=== PATIENT | female | born 1960 | race Caucasian/White ===

== ENCOUNTER 2017-09-22 22:01 | Observation (INO) | payer MEDICAID, OTHER ==
[2017-09-22] MEDS ORDERED: POLYMYXIN B/TRIMETH OPHTH DROPS EACHEYE STA (22:34)
[2017-09-22 22:47] LABS: BASOPHILS # (AUTO) 0.1 10^3/uL (0.0-0.1); EOSINOPHILS % (AUTO) 0.4 %; HGB - HEMOGLOBIN 12.5 g/dL (12.0-16.0); LYMPHOCYTES # (AUTO) 2.6 10^3/uL (1.5-3.5); LYMPHOCYTES % (AUTO) 28.5 %; MEAN CORPUSCULAR HEMOGLOBIN 37.7 pg (27.0-31.0); MEAN CORPUSCULAR HGB CONC 35.8 g/dL (32.0-36.0); MEAN CORPUSCULAR VOLUME 105.5 fL (81.0-99.0); MEAN PLATELET VOLUME 7.8 fL (7.9-10.8); MONOCYTES # (AUTO) 0.6 10^3/uL (0.0-1.0); MONOCYTES % (AUTO) 7.1 %; NEUTROPHILS # (AUTO) 5.8 10^3/uL (1.5-6.6); PLT - PLATELET COUNT 208 10^3/uL (130-450); RED BLOOD COUNT 3.32 10^6/uL (4.20-5.40); RED CELL DISTRIBUTION WIDTH 15.7 % (12.0-15.0); WHITE BLOOD COUNT 9.1 x10^3/uL (4.8-10.8)
[2017-09-22 23:02] LABS: ALBUMIN 4.4 g/dL (3.2-5.5); ALBUMIN/GLOBULIN RATIO 1.2 (1.0-2.2); BILIRUBIN,TOTAL 1.5 mg/dL (0.2-1.0); CALCIUM 7.4 mg/dL (8.5-10.3); CREATININE 1.5 mg/dL (0.4-1.0); TOTAL PROTEIN 8.2 g/dL (6.7-8.2)
[2017-09-22] MEDS ORDERED: SODIUM CHLORIDE 0.9% 1,000 ML IV ONE (23:06)
[2017-09-22] MEDS ORDERED: POTASSIUM CHLOR 10 MEQ/100 ML 10 MEQ/100 ML BAG IV ONE (23:06)
[2017-09-22] MEDS ORDERED: LORazepam 2 MG/ML VIAL IVP STA (23:10)
--- NOTE | 2017-09-22 23:12 | ED Physician Documentation ---
History of Present Illness - Stated complaint Stated Complaint: EYE IRRITATION/SHAKING - Chief complaint Chief Complaint: General - History obtained from History obtained from: Patient - History of Present Illness Timing: How many days ago (2) - Additonal information Additional information: Patient is a 57 year old female with no significant past medical history who is presenting to the emergency department for shaking episodes, high blood pressure and swelling and discharge of her left eye. patient states that two days prior she was shaking all day. She also felt nauseated. Patient went to go to an interview at a [employer] and was sent home for matting and discharge of her left eye. Patient states that the shaking gets worse with intention. Patient also complained of hand cramping. 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 : Kidney stones HEENT: None Psych: Anxiety Musculoskeletal: Rheumatoid arthritis Derm: None - Past Surgical History Past Surgical History: Yes Ortho: Other - Present Medications Home Medications: Ambulatory Orders Medication Instructions Recorded Confirmed Alprazolam [Xanax] 0.5 mg PO BID PRN 07/04/13 06/01/15 Metoprolol Succinate [Toprol Xl] 25 mg PO BID 07/04/13 06/01/15 Lisinopril 10 mg PO DAILY 09/22/17 09/22/17 - Allergies Allergies/Adverse Reactions: Allergies Allergy/AdvReac Type Severity Reaction Status Date / Time Sulfa (Sulfonamide Allergy Unknown Unknown Verified 09/22/17 22:09 Antibiotics) - Social History Does the pt smoke?: No Smoking Status: Never smoker Does the pt drink ETOH?: Yes Does the pt have substance abuse?: No - Immunizations Immunizations are current?: Yes - POLST Patient has POLST: No PD ED PE NORMAL - Vitals Vital signs reviewed: Yes - General General: Alert and oriented X 3 - HEENT HEENT: Atraumatic - Cardiac Cardiac: RRR - Respiratory Respiratory: No respiratory distress - Abdomen Abdomen: Soft - Neuro Neuro: Alert and oriented X 3, Normal speech Eye Opening: Spontaneous PD ED PE EXPANDED - General General: Alert - HEENT HEENT: Dry mucous membranes - Eyes Eyes: Left eye, Eyelid swelling, Exudate - Derm Derm: Diaphoretic - Neuro Neuro: Other (mild tremors) Results - Vitals Vitals: Vital Signs - 24 hr 09/22/17 09/22/17 22:04 23:28 Temperature 36.7 C Heart Rate 90 71 Respiratory 22 16 Rate Blood Pressure 171/102 H 145/95 H O2 Saturation 97 98 Oxygen O2 Source Room air - EKG (time done) 2326 Rate: Rate (enter#) (77) Rhythm: NSR [place]: Normal Intervals: Prolonged QT Ischemia: Other (st flattening ) Compare to prior EKG: Old EKG unavailable - Labs Labs: Laboratory Tests 09/22/17 09/22/17 09/22/17 22:17 22:41 22:41 WBC 9.1 RBC 3.32 L Hgb 12.5 Hct 35.1 L MCV 105.5 H MCH 37.7 H MCHC 35.8 RDW 15.7 H Plt Count 208 MPV 7.8 L Neut # (Auto) 5.8 Lymph # (Auto) 2.6 [place] # (Auto) 0.6 Eos # (Auto) 0.0 Baso # (Auto) 0.1 Absolute Nucleated RBC 0.00 Nucleated RBC % 0.0 VBG pH VBG pCO2 VBG pO2 VBG HCO3 VBG Total CO2 VBG O2 Saturation VBG Base Excess Sodium 134 L Potassium 2.4 L* Chloride 90 L Carbon Dioxide 24 Anion Gap 20.0 H BUN 21 H Creatinine 1.5 H Estimated GFR (MDRD) 36 L Glucose 97 POC Whole Bld Glucose 101 H Lactic Acid Calcium 7.4 L Phosphorus Magnesium Total Bilirubin 1.5 H AST 92 H ALT 44 Alkaline Phosphatase 67 Troponin I Total Protein 8.2 Albumin 4.4 Globulin 3.8 Albumin/Globulin Ratio 1.2 Lipase 41 TSH Ethyl Alcohol Serum Ketones 09/22/17 09/22/17 09/22/17 22:41 22:41 22:41 WBC RBC Hgb Hct MCV MCH MCHC RDW Plt Count MPV Neut # (Auto) Lymph # (Auto) [place] # (Auto) Eos # (Auto) Baso # (Auto) Absolute Nucleated RBC Nucleated RBC % VBG pH VBG pCO2 VBG pO2 VBG HCO3 VBG Total CO2 VBG O2 Saturation VBG Base Excess Sodium Potassium Chloride Carbon Dioxide Anion Gap BUN Creatinine Estimated GFR (MDRD) Glucose POC Whole Bld Glucose Lactic Acid Calcium Phosphorus 2.2 L Magnesium 0.8 L* Total Bilirubin AST ALT Alkaline Phosphatase Troponin I < 0.04 Total Protein Albumin Globulin Albumin/Globulin Ratio Lipase TSH 3.62 Ethyl Alcohol Serum Ketones 09/22/17 09/22/17 09/22/17 22:41 23:15 23:15 WBC RBC Hgb Hct MCV MCH MCHC RDW Plt Count MPV Neut # (Auto) Lymph # (Auto) [place] # (Auto) Eos # (Auto) Baso # (Auto) Absolute Nucleated RBC Nucleated RBC % VBG pH 7.481 H VBG pCO2 36.5 L VBG pO2 40.0 VBG HCO3 26.6 VBG Total CO2 27.8 VBG O2 Saturation 76.4 VBG Base Excess 3.2 H Sodium Potassium Chloride Carbon Dioxide Anion Gap BUN Creatinine Estimated GFR (MDRD) Glucose POC Whole Bld Glucose Lactic Acid 2.4 H Calcium Phosphorus Magnesium Total Bilirubin AST ALT Alkaline Phosphatase Troponin I Total Protein Albumin Globulin Albumin/Globulin Ratio Lipase TSH Ethyl Alcohol 34.9 Serum Ketones SMALL H PD MEDICAL DECISION MAKING - ED course Complexity details: reviewed old records, reviewed results, re-evaluated patient , considered differential, d/w patient, d/w sfdc consultant ED course: Patient was seen and examined at bedside. labs were drawn, urine was collected. polytrim was ordered for patient's eye. When patient's labs came back she was found to be hypokalemic, in [place] with macrocytic anemia and transaminitis consistent with alcohol abuse. Patient was then asked about her drinking. patient states that she has been trying to cut back and her last drink was the day before her symptoms. Patient was treated with a fluid bolus, ativan, thiamine, folic acid, magnesium and potassium. ekg was performed and showed milt qt prolongation. Hospitalist was contacted and the case was discussed with her. Patient was admiited for further evaluation and care. - Sepsis Event Vital Signs: Vital Signs - 24 hr 09/22/17 09/22/17 22:04 23:28 Temperature 36.7 C Heart Rate 90 71 Respiratory 22 16 Rate Blood Pressure 171/102 H 145/95 H O2 Saturation 97 98 Oxygen O2 Source Room air Departure - Departure Disposition: ED Place in Observation Clinical Impression: Hypokalemia, Hypomagnesemia, GEORGIE (acute kidney injury) Condition: Stable
[2017-09-22 23:26] LABS: PHOSPHORUS 2.2 mg/dL (2.5-4.6)
[2017-09-22] MEDS ORDERED: MAGNESIUM SULFATE 2 GRAM 2 GM/50 ML BAG IV ONE (23:27)
[2017-09-22] MEDS ORDERED: THIAMINE INJ 100 MG in SODIUM CHLORIDE 0.9% 50 ML IV STA (23:27)
[2017-09-22] MEDS ORDERED: FOLIC ACID INJ 1 MG in SODIUM CHLORIDE 0.9% 1,000 ML IV STA (23:27)
[2017-09-22 23:29] LABS: MAGNESIUM 0.8 mg/dL (1.7-2.8)
[2017-09-22 23:33] LABS: VBG BASE EXCESS 3.2 mmol/L (-2 - +2); VBG PCO2 36.5 mmHg (41-51); VBG PH 7.481 (7.31-7.41); VBG TOTAL CO2 27.8 mmol/L (24-29)
[2017-09-22 23:39] LABS: KETONES, SERUM (ACETEST) SMALL (NEGATIVE)
[2017-09-22] MEDS ORDERED: D5.45NS W/20 MEQ KCL 1,000 ML IV SCH (23:45)
[2017-09-22] MEDS ORDERED: SODIUM CHLORIDE FLUSH 0.9% 10 ML SYRINGE IVP PRN (23:54)
--- NOTE | 2017-09-23 00:49 | HISTORY & PHYSICAL EXAMINATION ---
Chief Complaint - Chief Complaint Chief Complaint: Shaking, chills History of Present Illness - Admitted From Admitted From:: Home - History Obtained From History obtained from: Patient, ED physician - History of Present Illness HPI Comment/Other: Ms. Tati Navarro is a very pleasant 57-year-old female who has a history of having woken up 2 days ago with fever, chills, shaking, and weakness. She says she was too weak to come to the emergency department and did not want to come via EMS because she did not want to be stranded without a car and so waited until today, when she felt better, to come into the emergency department. On admission the patient was found to be severely hypomagnesemic, Faith Kumar, and phosphatemia. The patient does not have an elevated white blood cell count or a fever. She will be admitted to an observation bed on telemetry and we will correct her electrolytes the best we can overnight. 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 : reports: Kidney stones HEENT: reports: None Psych: reports: Anxiety Musculoskeletal: reports: Rheumatoid arthritis Derm: reports: None MRSA Hx?: No - Past Surgical History Ortho: reports: Other (R ankle repair) - Family & Social History Family History: Mother: (Father in a motor vehicle accident), Cancer (Mother of lung cancer), Father: , Other family: Hyperlipidemia, Hypertension, [place] Living arrangement: At home Living Situation: Alone - Substance History Use Issues: Intoxication Abuse: Recurrent use of substance despite neg consequences: Alcohol Abuse Issues: Intoxication Dependence: Experiences withdrawal or developed tolerances: Alcohol - POLST Patient has POLST: No POLST Status: Full Code Meds/Allgy - Home Medications Home Medications: Ambulatory Orders Medication Instructions Recorded Confirmed Alprazolam [Xanax] 0.5 mg PO BID PRN 07/04/13 06/01/15 Metoprolol Succinate [Toprol Xl] 25 mg PO BID 07/04/13 06/01/15 Lisinopril 10 mg PO DAILY 09/22/17 09/22/17 - Allergies Allergies/Adverse Reactions: Allergies Allergy/AdvReac Type Severity Reaction Status Date / Time Sulfa (Sulfonamide Allergy Unknown Unknown Verified 09/22/17 22:09 Antibiotics) Review of Systems - Constitutional Constitutional: reports: Fatigue, Chills, Malaise, Weakness, Night sweats - Eyes Eyes: denies: Pain, Irritation, Amaurosis, Blurred vision - Ears, Nose & Throat Ears, Nose & Throat: denies: Ear pain, Hearing loss, Hearing aids, Tinnitus, Vertigo, Nasal pain, Nasal discharge - Cardiovascular Cariovascular: denies: Irregular heart rate, Palpitations, Chest pain, Edema - Respiratory Respiratory: denies: Cough, Sputum production, Wheezing, Snoring - Gastrointestinal Gastrointestinal: denies: Abdominal pain, Abdominal distention, Constipation, Diarrhea, Change in bowel habits, Rectal bleeding - Genitourinary Genitourinary: denies: Dysuria, Frequency, Urgency, Hematuria - Musculoskeletal Musculoskeletal: reports: Muscle aches. denies: Muscle pain, Back pain, Stiffness - Integumentary Integumentary: denies: Rash, Pruritis, Lesions, Dryness - Neurological Neurological: denies: General weakness, Focal weakness, Headache, Dizziness - Psychiatric Psychiatric: denies: Depression, Anxiety, Suicidal, Delusions, Hallucinations - Endocrine Endocrine: denies: Polyuria, Polydypsia, Polyphagia - Hematologic/Lymphatic Hematologic/Lymphatic: denies: Anemia, Bruising, Petechiae, Lymphadenopathy - All Other Systems All Other Systems: reports: Reviewed and negative Exam - Vital Signs Reviewed Vital Signs: Yes Vital Signs: Vital Signs x48h Temp Pulse Resp BP Pulse Ox 09/23/17 00:19 80 29 H 166/90 H 93 09/22/17 23:28 71 16 145/95 H 98 09/22/17 22:04 36.7 C 90 22 171/102 H 97 - Physical Exam General Appearance: positive: Alert, Mild distress Eyes Bilateral: positive: Normal inspection, PERRL, EOMI, No lid inflammation, Conjunctivae nml, No scleral icterus ENT: positive: ENT inspection nml, Pharynx nml, No signs of dehydration Neck: positive: Nml inspection, Thyroid nml, No JVD, Trachea midline. negative : Thyromegaly Respiratory: positive: Chest non-tender, No respiratory distress, Breath sounds nml. negative: Wheezes, Rales, Rhonchi Cardiovascular: positive: Regular rate & rhythm, No murmur, No gallop Peripheral Pulses: positive: 1+ Abdomen: positive: Non-tender, No organomegaly, Nml bowel sounds, No distention. negative: Guarding, Rebound Back: positive: Nml inspection. negative: CVA tenderness (R), CVA tenderness (L ) Skin: positive: Color nml, No rash, Warm, Dry. negative: Cyanosis Extremities: positive: Non-tender, Full ROM, Nml appearance, No pedal edema Neurologic/Psychiatric: positive: Oriented x3, CN's nml (2-12), Motor nml, Sensation nml, Mood/affect nml, Other (tremulous) Conclusion/Plan - Problem List (1) GEORGIE (acute kidney injury) Conclusion/Plan: The patient appears to be dehydrated, we will rehydrate her. She is also very tremulous and her numbers suggest that she drinks alcohol much more often than just on weekends. We will rehydrate her and monitor her renal function closely. (2) Hypomagnesemia Conclusion/Plan: Severe, 0.8. We will give 8 bags of magnesium overnight and start her on oral magnesium supplements tomorrow morning. (3) Hypokalemia Conclusion/Plan: We are replacing the patient's potassium and phosphorus at this time. We will recheck in the morning. (4) Hypertension Conclusion/Plan: Patient's blood pressure is elevated, will restart home dosing of lisinopril and metoprolol.Patient may need a diuretic. Qualifiers: Hypertension type: essential hypertension Qualified Code(s): I10 - Essential (primary) hypertension - Lab Results Lab results reviewed: Yes Mehul Bones: 09/22/17 22:41 09/22/17 22:41 Core Measures - Anticipated LOS I expect patient to be DC'd or transferred within 96 hours.: Yes - DVT/VTE - Prophylaxis VTE/DVT Device ordered at admit?: Yes
[2017-09-23] MEDS ORDERED: MAGNESIUM OXIDE 400 MG TABLET PO SCH ×2 (01:00→14:00)
[2017-09-23] MEDS: SODIUM CHLORIDE FLUSH 0.9% 10 ML SYRINGE IVP SCH ×2 (01:50→08:40)
[2017-09-23] MEDS: MAGNESIUM SULFATE 1 GM in SODIUM CHLORIDE 0.9% 50 ML IV SCH ×4 (01:51→05:50)
[2017-09-23] MEDS: NEUTRA-PHOS 250 MG TABLET PO SCH ×3 (02:05→11:55)
[2017-09-23] MEDS: LORazepam 0.5 MG TABLET PO SCH ×3 (02:08→13:40)
[2017-09-23 04:19] LABS: BILIRUBIN,URINE NEGATIVE (NEGATIVE); GLUCOSE, URINE (UA) NEGATIVE (NEGATIVE); KETONES,URINE (UA) TRACE mg/dL (NEGATIVE); LEUKOCYTE ESTERASE, URINE NEGATIVE (NEGATIVE); NITRITE,URINE NEGATIVE (NEGATIVE); OCCULT BLOOD,URINE NEGATIVE (NEGATIVE); PH,URINE 5.5 PH (5.0-7.5); PROTEIN,URINE NEGATIVE (NEGATIVE); UROBILINOGEN,URINE 0.2 (NORMAL) E.U./dL (NORMAL)
[2017-09-23 04:20] LABS: CLARITY,URINE CLEAR (CLEAR)
[2017-09-23] MEDS: POTASSIUM CHLORIDE 20 MEQ TABLET PO SCH ×2 (06:03→13:40)
[2017-09-23 06:21] LABS: HGB - HEMOGLOBIN 11.3 g/dL (12.0-16.0); MEAN CORPUSCULAR HEMOGLOBIN 38.3 pg (27.0-31.0); MEAN CORPUSCULAR HGB CONC 35.9 g/dL (32.0-36.0); MEAN CORPUSCULAR VOLUME 106.8 fL (81.0-99.0); MEAN PLATELET VOLUME 8.2 fL (7.9-10.8); RED BLOOD COUNT 2.95 10^6/uL (4.20-5.40); RED CELL DISTRIBUTION WIDTH 15.5 % (12.0-15.0); WHITE BLOOD COUNT 6.8 x10^3/uL (4.8-10.8)
[2017-09-23 06:32] LABS: CALCIUM 6.8 mg/dL (8.5-10.3); CREATININE 1.3 mg/dL (0.4-1.0); MAGNESIUM 2.6 mg/dL (1.7-2.8); PHOSPHORUS 2.2 mg/dL (2.5-4.6)
[2017-09-23] MEDS ORDERED: POTASSIUM CHLOR 20 MEQ/100 ML 20 MEQ/100 ML BAG IV SCH (07:00)
[2017-09-23] MEDS ORDERED: NYSTATIN POWDER 15 GM TOP SCH (07:00)
[2017-09-23] MEDS: POTASSIUM CHLOR 10 MEQ/100 ML 10 MEQ/100 ML BAG IV SCH ×5 (08:45→14:47)
[2017-09-23] MEDS ORDERED: POLYETHYLENE GLYCOL 3350 17 GM PACKET PO SCH (09:00)
[2017-09-23] MEDS ORDERED: LISINOPRIL 5 MG TABLET PO SCH (09:00)
[2017-09-23 10:59] LABS: BUN - BLOOD UREA NITROGEN 21 mg/dL (6-20); CALCIUM 6.7 mg/dL (8.5-10.3); CARBON DIOXIDE - CO2 25 mmol/L (21-32); CHLORIDE 93 mmol/L (101-111); CREATININE 1.3 mg/dL (0.4-1.0); GFR - MDRD 42 (>89); GLUCOSE 95 mg/dL (70-100); MAGNESIUM 2.6 mg/dL (1.7-2.8); PHOSPHORUS 2.3 mg/dL (2.5-4.6); SODIUM 130 mmol/L (135-145)
[2017-09-23 11:04] LABS: VBG PH 7.453 (7.31-7.41)
[2017-09-23] MEDS ORDERED: CALCIUM CARBONATE CHEW 500 MG TABLET PO SCH (13:00)
[2017-09-23 15:44] LABS: ALBUMIN 3.7 g/dL (3.2-5.5); ALBUMIN/GLOBULIN RATIO 1.1 (1.0-2.2); ALKALINE PHOSPHATASE 68 IU/L (42-121); ALT ALANINE AMINOTRANSFERASE 40 IU/L (10-60); AST ASPARTATE AMINOTRANSFERASE 94 IU/L (10-42); BILIRUBIN,TOTAL 1.3 mg/dL (0.2-1.0); BUN - BLOOD UREA NITROGEN 20 mg/dL (6-20); CALCIUM 6.9 mg/dL (8.5-10.3); CARBON DIOXIDE - CO2 25 mmol/L (21-32); CHLORIDE 94 mmol/L (101-111); CREATININE 1.1 mg/dL (0.4-1.0); GFR - MDRD 51 (>89); GLUCOSE 119 mg/dL (70-100); MAGNESIUM 2.3 mg/dL (1.7-2.8); PHOSPHORUS 2.5 mg/dL (2.5-4.6); SODIUM 132 mmol/L (135-145); TOTAL PROTEIN 7.1 g/dL (6.7-8.2)
[2017-09-23 15:53] VITALS: BP 134/65
[2017-09-23 15:57] LABS: VBG PH 7.422 (7.31-7.41)
--- NOTE | 2017-09-23 16:07 | Discharge Plan ---
Discharge Plan Disposition: 01 Home, Self Care Condition: Fair Prescriptions: LORazepam [Ativan] 0.5 mg PO Q6H #30 tablet Sertraline [Zoloft] 50 mg PO DAILY #30 tablet Diet: Regular Activity Restrictions: Activity as Tolerated Shower Restrictions: No Driving Restrictions: No Weight Bearing: Full Weight Additional Instructions or Follow Up instructions: You presented with weakness and where shaking. He was found to be dehydrated with abnormal electrolytes due to gastroenteritis and alcohol withdrawal. I have prescribed you Ativan to help you through withdrawal and shaking. I recommend that you drink plenty of fluids, eat and use Pedialyte as well as potassium and magnesium to replenish her electrolytes. You have also been prescribed Zoloft for your history of depression and I would advised that you start taking Zoloft and follow-up with your primary care physician. I also recommend that you stay away from alcohol in the future as it does not seem to react well with your system. No Smoking: If you smoke, Please STOP! Call for help.
--- NOTE | 2017-09-23 16:14 | DISCHARGE SUMMARY ---
Discharge Summary Admit Date: 09/22/17 Discharge Date: 09/23/17 Discharging Provider: Ruy Maki MD Primary Care Provider: None Code Status: Attempt Resuscitation Condition at Discharge: Fair Discharge Disposition: 01 Home, Self Care - DIAGNOSES Admission Diagnoses: 1. Acute kidney injury 2. Hypomagnesemia 3. Hypokalemia 4. Hypertension Discharge Diagnoses with Status of Each Condition: 1. Acute kidney injury: Resolving 2. Hypomagnesemia: Improved 3. Hypokalemia: Improved 4. Hypertension: Stable 5. Alcohol abuse: Stable 6. Depression: Stable - HPI History of Present Illness: Ms. Tati Navarro is a very pleasant 57-year-old female who has a history of having woken up 2 days ago with fever, chills, shaking, and weakness. She says she was too weak to come to the emergency department and did not want to come via EMS because she did not want to be stranded without a car and so waited until today, when she felt better, to come into the emergency department. On admission the patient was found to be severely hypomagnesemic, Faith Kumar, and phosphatemia. The patient does not have an elevated white blood cell count or a fever. She will be admitted to an observation bed on telemetry and we will correct her electrolytes the best we can overnight. - HOSPITAL COURSE Hospital Course: During hospitalization patient was given IV fluids, IV magnesium, phosphorus replacement, IV potassium, thiamine, folic acid and placed on alcohol withdrawal protocol with Ativan as needed. The patient was adequately hydrated and electrolytes were adequately replaced during the hospitalization. The patient continued to feel slightly shaky but was in much better condition at the time of discharge. The patient was discharged home with a prescription for Ativan to help her through her alcohol withdrawals. She was advised to quit drinking. She was also advised to drink plenty of fluid and use Pedialyte as well as potassium and magnesium to replenish her electrolytes. The patient was given a prescription for Zoloft which she had previously been taking for depression. The patient did admit to being depressed since losing her job and had resorted to drinking alcohol as means of treating her depression. Patient was discharged in stable condition. - ALLERGIES Allergies/Adverse Reactions: Allergies Allergy/AdvReac Type Severity Reaction Status Date / Time Sulfa (Sulfonamide Allergy Unknown Unknown Verified 09/22/17 22:09 Antibiotics) - MEDICATIONS Home Medications: Ambulatory Orders Medication Instructions Recorded Confirmed Alprazolam [Xanax] 0.5 mg PO TID PRN 07/04/13 09/23/17 Lisinopril 10 mg PO DAILY 09/22/17 09/22/17 LORazepam [Ativan] 0.5 mg PO Q6H #30 tablet 09/23/17 Metoprolol Tartrate [Lopressor] 50 mg PO BID 09/23/17 09/23/17 Omeprazole [PriLOSEC] 20 mg PO QDAC 09/23/17 09/23/17 Sertraline [Zoloft] 50 mg PO DAILY #30 tablet 09/23/17 - PHYSICAL EXAM AT DISCHARGE General Appearance: positive: Alert, Other (Mild tremor, disheveled appearing) Eyes Bilateral: positive: Normal inspection, PERRL, EOMI, No lid inflammation, Conjunctivae nml, No scleral icterus ENT: positive: ENT inspection nml, Pharynx nml, Dry mucous membranes. negative : Purulent nasal drainage, Pharyngeal erythema, Oral lesions Neck: positive: Nml inspection, Thyroid nml, No JVD, Trachea midline. negative : Lymphadenopathy (R), Lymphadenopathy (L), Stiff neck, Kernig's sign, Carotid bruit, Tracheal deviation Respiratory: positive: Chest non-tender, No respiratory distress, Breath sounds nml. negative: Wheezes, Rales, Rhonchi Cardiovascular: positive: Regular rate & rhythm, No murmur, No gallop Peripheral Pulses: positive: 2+ Abdomen: positive: Non-tender, No organomegaly, Nml bowel sounds, No distention. negative: Guarding, Rebound, Hepatomegaly Back: positive: Nml inspection. negative: CVA tenderness (R), CVA tenderness (L ) Skin: positive: Color nml, No rash, Warm. negative: Diaphoresis, Pallor, Skin rash Extremities: positive: Non-tender, Full ROM, Nml appearance, No pedal edema Neurologic/Psychiatric: positive: Oriented x3, CN's nml (2-12), Motor nml, Sensation nml, Depressed mood/affect - LABS Result Diagrams: 09/23/17 06:10 09/23/17 15:16 Other Lab Results: Laboratory Results WBC 6.8 x10^3/uL (4.8-10.8) 09/23/17 06:10 RBC 2.95 10^6/uL (4.20-5.40) L 09/23/17 06:10 Hgb 11.3 g/dL (12.0-16.0) L 09/23/17 06:10 Hct 31.5 % (37.0-47.0) L 09/23/17 06:10 MCV 106.8 fL (81.0-99.0) H 09/23/17 06:10 MCH 38.3 pg (27.0-31.0) H 09/23/17 06:10 MCHC 35.9 g/dL (32.0-36.0) 09/23/17 06:10 RDW 15.5 % (12.0-15.0) H 09/23/17 06:10 Plt Count 173 10^3/uL (130-450) 09/23/17 06:10 MPV 8.2 fL (7.9-10.8) 09/23/17 06:10 Neut # (Auto) 5.8 10^3/uL (1.5-6.6) 09/22/17 22:41 Lymph # (Auto) 2.6 10^3/uL (1.5-3.5) 09/22/17 22:41 [place] # (Auto) 0.6 10^3/uL (0.0-1.0) 09/22/17 22:41 Eos # (Auto) 0.0 10^3/uL (0.0-0.7) 09/22/17 22:41 Baso # (Auto) 0.1 10^3/uL (0.0-0.1) 09/22/17 22:41 Absolute Nucleated RBC 0.00 x10^3/uL 09/22/17 22:41 Nucleated RBC % 0.0 /100WBC 09/22/17 22:41 VBG pH 7.422 (7.31-7.41) H 09/23/17 15:16 VBG pCO2 36.5 mmHg (41-51) L 09/22/17 23:15 VBG pO2 40.0 mmHg (25-47) 09/22/17 23:15 VBG HCO3 26.6 mmol/L (23-28) 09/22/17 23:15 VBG Total CO2 27.8 mmol/L (24-29) 09/22/17 23:15 VBG O2 Saturation 76.4 % (60-80) 09/22/17 23:15 VBG Base Excess 3.2 mmol/L (-2 - +2) H 09/22/17 23:15 Ionized Calcium 0.86 mmol/L (1.15-1.33) L 09/23/17 15:16 Sodium 132 mmol/L (135-145) L 09/23/17 15:16 Potassium 3.0 mmol/L (3.5-5.0) L 09/23/17 15:16 Chloride 94 mmol/L (101-111) L 09/23/17 15:16 Carbon Dioxide 25 mmol/L (21-32) 09/23/17 15:16 Anion Gap 13.0 (6-13) 09/23/17 15:16 BUN 20 mg/dL (6-20) 09/23/17 15:16 Creatinine 1.1 mg/dL (0.4-1.0) H 09/23/17 15:16 Estimated GFR (MDRD) 51 (>89) L 09/23/17 15:16 Glucose 119 mg/dL (70-100) H 09/23/17 15:16 POC Whole Bld Glucose 101 mg/dL (70 - 100) H 09/22/17 22:17 Lactic Acid 1.1 mmol/L (0.5-2.2) 09/23/17 02:44 Calcium 6.9 mg/dL (8.5-10.3) L 09/23/17 15:16 Ionized Calcium YES 09/23/17 15:16 Phosphorus 2.5 mg/dL (2.5-4.6) 09/23/17 15:16 Magnesium 2.3 mg/dL (1.7-2.8) 09/23/17 15:16 Total Bilirubin 1.3 mg/dL (0.2-1.0) H 09/23/17 15:16 AST 94 IU/L (10-42) H 09/23/17 15:16 ALT 40 IU/L (10-60) 09/23/17 15:16 Alkaline Phosphatase 68 IU/L (42-121) 09/23/17 15:16 Troponin I < 0.04 ng/mL (<0.49) 09/22/17 22:41 Total Protein 7.1 g/dL (6.7-8.2) 09/23/17 15:16 Albumin 3.7 g/dL (3.2-5.5) 09/23/17 15:16 Globulin 3.4 g/dL (2.1-4.2) 09/23/17 15:16 Albumin/Globulin Ratio 1.1 (1.0-2.2) 09/23/17 15:16 Lipase 41 U/L (22-51) 09/22/17 22:41 TSH 3.62 uIU/mL (0.34-5.60) 09/22/17 22:41 Urine Color YELLOW 09/23/17 01:20 Urine Clarity CLEAR (CLEAR) 09/23/17 01:20 Urine pH 5.5 PH (5.0-7.5) 09/23/17 01:20 Ur Specific Needles 1.015 (1.002-1.030) 09/23/17 01:20 Urine Protein NEGATIVE mg/dL (NEGATIVE) 09/23/17 01:20 Urine Glucose (UA) NEGATIVE mg/dL (NEGATIVE) 09/23/17 01:20 Urine Ketones TRACE mg/dL (NEGATIVE) 09/23/17 01:20 Urine Occult Blood NEGATIVE (NEGATIVE) 09/23/17 01:20 Urine Nitrite NEGATIVE (NEGATIVE) 09/23/17 01:20 Urine Bilirubin NEGATIVE (NEGATIVE) 09/23/17 01:20 Urine Urobilinogen 0.2 (NORMAL) E.U./dL (NORMAL) 09/23/17 01:20 Ur Leukocyte Esterase NEGATIVE (NEGATIVE) 09/23/17 01:20 Ur Microscopic Review NOT INDICATED 09/23/17 01:20 Urine Culture Comments NOT INDICATED 09/23/17 01:20 Ethyl Alcohol 34.9 mg/dL 09/22/17 22:41 Serum Ketones SMALL (NEGATIVE) H 09/22/17 22:41 - FOLLOW UP Follow Up: Patient discharged home with prescription for Ativan as needed to help her through withdrawal. Also patient given prescription for Zoloft and patient advised to drink plenty of fluids, take a multivitamin, use potassium and magnesium. The patient was also advised to quit drinking and use Pedialyte over the next few days to keep well-hydrated and replenish electrolytes. - TIME SPENT Time Spent in Discharge (Minutes): 35
== END 2017-09-23 16:55 | disposition home or self-care (01) ==
LOC: ED 22:01 → OBS 23:54
PROVIDERS: ADMIT Hospitalist; ATTEND Internal Medicine
DX: N17.9 Acute kidney failure, unspecified (principal); E83.42 Hypomagnesemia; E87.6 Hypokalemia; I10 Essential (primary) hypertension; F10.239 Alcohol dependence with withdrawal, unspecified; F32.9 Major depressive disorder, single episode, unspecified; E83.39 Other disorders of phosphorus metabolism; H57.8 Other specified disorders of eye and adnexa; H02.89 Other specified disorders of eyelid; D53.9 Nutritional anemia, unspecified; F41.9 Anxiety disorder, unspecified; Z63.79 Other stressful life events affecting family and household; Z79.899 Other long term (current) drug therapy
CPT/HCPCS: 36415; 80048; 80053; 80320; 81003; 82009; 82330; 82803; 83605; 83690; 83735; 84100; 84443; 84484; 85025; 85027; 93005; 96365; 96366; 96367; 96368; 96375; 99284; A9270; G0378; J2060; J3411; J7040; 81001; 87086; 99283

== ENCOUNTER 2018-10-27 18:49 | Emergency (ER) | payer MEDICAID ==
--- NOTE | 2018-10-27 19:10 | ED Physician Documentation ---
History of Present Illness - Stated complaint Stated Complaint: BILAT LEG PX - Chief complaint Chief Complaint: Ext Problem - History obtained from History obtained from: Patient - History of Present Illness Timing: Other (58-year-old woman with some history of alcoholism presents with a complaint of burning pain that is symmetric of both thighs for the last month. It goes on all day and all night. There is no particular inciting or relieving factor. She denies other muscle aches, posterior leg pain, or any pain below the knees. There is no shortness of breath or chest pain. She has a history of significant electrolyte abnormalities presumably related to alcohol use. 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 : Kidney stones HEENT: None Psych: Anxiety Musculoskeletal: Rheumatoid arthritis Derm: None - Past Surgical History Past Surgical History: Yes Ortho: Other - Present Medications Home Medications: Ambulatory Orders Medication Instructions Recorded Confirmed Alprazolam [Xanax] 0.5 mg PO TID PRN 07/04/13 09/23/17 Lisinopril 10 mg PO DAILY 09/22/17 09/22/17 LORazepam [Ativan] 0.5 mg PO Q6H #30 tablet 09/23/17 Metoprolol Tartrate [Lopressor] 50 mg PO BID 09/23/17 09/23/17 Omeprazole [PriLOSEC] 20 mg PO QDAC 09/23/17 09/23/17 Sertraline [Zoloft] 50 mg PO DAILY #30 tablet 09/23/17 Potassium Phosphate,Monobasic 500 mg PO DAILY #7 10/27/18 [K-Phos Original] predniSONE [Deltasone] 10 mg PO ONCE #7 tablet 10/27/18 - Allergies Allergies/Adverse Reactions: Allergies Allergy/AdvReac Type Severity Reaction Status Date / Time Sulfa (Sulfonamide Allergy Unknown Unknown Verified 10/27/18 18:55 Antibiotics) - Social History Does the pt smoke?: No Smoking Status: Never smoker Does the pt drink ETOH?: Yes Does the pt have substance abuse?: No - Immunizations Immunizations are current?: Yes - POLST Patient has POLST: No POLST Status: Full Code PD ED PE NORMAL - Vitals Vital signs reviewed: Yes - General General: Alert and oriented X 3, No acute distress - Cardiac Cardiac: RRR, No murmur - Respiratory Respiratory: No respiratory distress, Clear bilaterally - Abdomen Abdomen: Normal bowel sounds, Soft, Non tender - Extremities Extremities: Other (There is no significant tenderness or discoloration of her thighs, no swelling or edema. No limited range of motion at any of her joints.) - Neuro Neuro: Alert and oriented X 3, Normal speech Results - Vitals Vitals: Vital Signs - 24 hr 10/27/18 18:52 Temperature 36.0 C L Heart Rate 110 H Respiratory 19 Rate Blood Pressure 153/98 H O2 Saturation 98 Oxygen O2 Source Room air - Labs Labs: Laboratory Tests 10/27/18 10/27/18 10/27/18 19:16 19:16 19:16 WBC 5.4 RBC 3.27 L Hgb 11.7 L Hct 34.6 L MCV 105.8 H MCH 35.8 H MCHC 33.8 RDW 13.4 Plt Count 234 MPV 9.6 Neut # (Auto) 2.1 Lymph # (Auto) 2.8 [place] # (Auto) 0.4 Eos # (Auto) 0.1 Baso # (Auto) 0.0 Absolute Nucleated RBC 0.00 Nucleated RBC % 0.0 ESR 32 H Sodium 145 Potassium 3.3 L Chloride 111 Carbon Dioxide 20 L Anion Gap 14.0 H BUN 20 Creatinine 0.9 Estimated GFR (MDRD) 64 L Glucose 111 H Calcium 9.1 Phosphorus 2.1 L Magnesium 1.9 Total Bilirubin 0.6 AST 122 H ALT 80 H Alkaline Phosphatase 77 Total Creatine Kinase 57 C-Reactive Protein 1.3 H Total Protein 7.6 Albumin 3.9 Globulin 3.7 Albumin/Globulin Ratio 1.1 Lipase 36 Ethyl Alcohol 199.4 PD MEDICAL DECISION MAKING - ED course ED course: 58-year-old woman who presents with bilateral subacute thigh ache anteriorly inconsistent with DVT. Could be some combination of electrolyte abnormalities which are generally mild on labs tonight, alcoholic neuropathy or polymyalgia rheumatica with noted elevated ESR. She is started on low-dose prednisone and her Electrolytes are repleted orally. She is noted to be drunk tonight, although not clinically and is advised that she may not drive home either safely nor legally. She needs to find a ride. I did not give her a long dose of steroids as she has poor primary care follow-up and I would be worried about iatrogenic adrenal crisis. Departure - Departure Disposition: Home, Self Care Clinical Impression: Hypokalemia, Polymyalgia rheumatica Alcohol intoxication Qualifiers: Complication of substance-induced condition: uncomplicated Qualified Code(s): F10.920 - Alcohol use, unspecified with intoxication, uncomplicated Condition: Good Record reviewed to determine appropriate education?: Yes Instructions: ED Alcohol Intoxication Prescriptions: Potassium Phosphate,Monobasic [K-Phos Original] 500 mg PO DAILY #7 predniSONE [Deltasone] 10 mg PO ONCE #7 tablet Comments: For the polymyalgia rheumatica, I would normally give you a longer course of steroids but given the lack of primary care follow-up it is probably unsafe to do so given the risk of issues if stopped suddenly. Try to obtain primary care follow-up. You may not drive tonight. You are drunk. Your blood pressure was elevated today on check into the emergency department. This does not mean that you have hypertension, it is a common phenomenon to come to the emergency department and have elevated blood pressure. I recommend that you see your primary care physician within the week to have it rechecked when you are feeling better.
[2018-10-27 19:22] LABS: BASOPHILS % (AUTO) 0.7 %; EOSINOPHILS # (AUTO) 0.1 10^3/uL (0.0-0.7); EOSINOPHILS % (AUTO) 1.1 %; HGB - HEMOGLOBIN 11.7 g/dL (12.0-16.0); LYMPHOCYTES # (AUTO) 2.8 10^3/uL (1.5-3.5); LYMPHOCYTES % (AUTO) 50.9 %; MEAN CORPUSCULAR HEMOGLOBIN 35.8 pg (27.0-31.0); MEAN CORPUSCULAR HGB CONC 33.8 g/dL (32.0-36.0); MEAN CORPUSCULAR VOLUME 105.8 fL (81.0-99.0); MEAN PLATELET VOLUME 9.6 fL (7.9-10.8); MONOCYTES # (AUTO) 0.4 10^3/uL (0.0-1.0); MONOCYTES % (AUTO) 7.7 %; NEUTROPHILS # (AUTO) 2.1 10^3/uL (1.5-6.6); NEUTROPHILS % (AUTO) 39.2 %; PLT - PLATELET COUNT 234 10^3/uL (130-450); RED BLOOD COUNT 3.27 10^6/uL (4.20-5.40); RED CELL DISTRIBUTION WIDTH 13.4 % (12.0-15.0); WHITE BLOOD COUNT 5.4 x10^3/uL (4.8-10.8)
[2018-10-27 19:41] LABS: BILIRUBIN,TOTAL 0.6 mg/dL (0.2-1.0); CALCIUM 9.1 mg/dL (8.5-10.3); CREATININE 0.9 mg/dL (0.4-1.0); MAGNESIUM 1.9 mg/dL (1.7-2.8); PHOSPHORUS 2.1 mg/dL (2.5-4.6)
[2018-10-27 19:42] LABS: ALBUMIN 3.9 g/dL (3.2-5.5); ALBUMIN/GLOBULIN RATIO 1.1 (1.0-2.2); CRP - C-REACTIVE PROTEIN 1.3 mg/dL (0-1.0); TOTAL PROTEIN 7.6 g/dL (6.7-8.2)
[2018-10-27] MEDS ORDERED: POTASSIUM CHLORIDE 20 MEQ TABLET PO STA (19:56)
[2018-10-27] MEDS ORDERED: NEUTRA-PHOS 250 MG TABLET PO STA (19:56)
[2018-10-27] MEDS ORDERED: predniSONE 20 MG TABLET PO STA (20:27)
[2018-10-27 20:59] VITALS: BP 158/79
== END 2018-10-27 20:40 | disposition home or self-care (01) ==
LOC: ED 18:49
DX: M35.3 Polymyalgia rheumatica (principal); E87.6 Hypokalemia; F10.229 Alcohol dependence with intoxication, unspecified; I10 Essential (primary) hypertension
CPT/HCPCS: 36415; 80053; 80320; 82550; 83690; 83735; 84100; 85025; 85651; 86140; 99283; A9270; J7512

== ENCOUNTER 2020-01-23 14:44 | Outpatient (CLI) | payer MEDICAID | END 2020-01-23 14:45 | disposition EMS.NT | LOC: EMS 14:44 | PROVIDERS: ATTEND Surgery | DX: R53.1 Weakness (principal) ==

== ENCOUNTER 2020-03-02 12:57 | Outpatient (CLI) | payer MEDICAID ==
--- NOTE | 2020-03-02 13:39 | XRAY Report ---
PROCEDURE: Lumbar Spine 2 View INDICATIONS: LOW BACK PAIN, CHRONIC TECHNIQUE: 3 views of the lumbar spine were acquired. COMPARISON: None. FINDINGS: Bones: 5 net-nvy-fdsgorx vertebrae are present. There is very mild leftward scoliosis of lumbar spi ne centered at L4 level. Grade 1 retrolisthesis of L1 on L2 and L2 on L3 is seen with minimal anterol isthesis of L3 on L4. Degenerative endplate changes and bilateral facet arthrosis throughout lumbar s pine is seen more prominent at L4-5 and L5-S1 levels. No vertebral body compression fractures. No guo spicious bony lesions. Soft tissues: Overlying bowel gas pattern is normal. No suspicious soft tissue calcifications. IMPRESSION: Degenerative disc disease throughout lumbar spine. No acute compression fracture. Grade 1 spondylolisthesis at L1-2 through L3-4 levels as above. Reviewed by: Conor Vásquez MD on 03/02/2020 1:37 PM PST Approved by: Conor Vásquez MD on 03/02/2020 1:37 PM PST Station ID: [id number]
== END 2020-03-02 12:58 | disposition home or self-care (01) ==
LOC: DI.S 12:57
PROVIDERS: ATTEND Family Medicine
DX: M43.16 Spondylolisthesis, lumbar region (principal); M47.816 Spondylosis without myelopathy or radiculopathy, lumbar region; M47.817 Spondylosis without myelopathy or radiculopathy, lumbosacral region; M51.36 Other intervertebral disc degeneration, lumbar region; M51.37 Other intervertebral disc degeneration, lumbosacral region
CPT/HCPCS: 72100

== ENCOUNTER 2020-04-25 23:41 | Outpatient (CLI) | payer MEDICAID | END 2020-04-25 23:42 | disposition home or self-care (01) | LOC: COV 23:41 | PROVIDERS: ATTEND Family Medicine | DX: R06.02 Shortness of breath (principal); M79.10 Myalgia, unspecified site; R53.83 Other fatigue; R68.83 Chills (without fever); J34.89 Other specified disorders of nose and nasal sinuses; R11.2 Nausea with vomiting, unspecified; Z20.822 Contact with and (suspected) exposure to COVID-19 ==

== ENCOUNTER 2020-05-10 15:15 | Outpatient (CLI) | payer MEDICAID | END 2020-05-10 23:59 | disposition critical access hospital (66) | LOC: EMS 15:15 | PROVIDERS: ATTEND Emergency Medicine | DX: R53.1 Weakness (principal); R25.1 Tremor, unspecified | CPT/HCPCS: A0425; A0427; A0999 ==

== ENCOUNTER 2020-05-10 15:54 | Emergency (ER) | payer MEDICAID ==
[2020-05-10] MEDS ORDERED: THIAMINE INJ 100 MG in SODIUM CHLORIDE 0.9% 50 ML IV STA (16:14)
[2020-05-10] MEDS ORDERED: SODIUM CHLORIDE 0.9% 1,000 ML IV STA (16:14)
--- NOTE | 2020-05-10 16:22 | ED Physician Documentation ---
History of Present Illness - Stated complaint Stated Complaint: HBD - Chief complaint Chief Complaint: General - History obtained from History obtained from: Patient (She has been drinking heavily for the last few days. She was last sober on Thursday, 4 days ago. Today she called her counselor because she had fallen down the stairs and the counselor) - Additonal information Additional information: She has been drinking heavily for the last few days. She was last sober on Thursday, 4 days ago. Today she called her counselor because she had fallen down the stairs and the counselor and required her to come to the emergency department. She has no specific complaints and just wants to go home. She did hit her head on the stairs going down the stairs earlier today. She has no headache. 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 : Kidney stones HEENT: None Psych: Anxiety Musculoskeletal: Rheumatoid arthritis Derm: None - Past Surgical History Past Surgical History: Yes Ortho: Other - Present Medications Home Medications: Ambulatory Orders Medication Instructions Recorded Confirmed lisinopriL [Lisinopril] 10 mg PO DAILY 09/22/17 05/10/20 Metoprolol Tartrate [Lopressor] 50 mg PO BID 09/23/17 05/10/20 Escitalopram Oxalate 5 mg PO DAILY 05/10/20 05/10/20 Venlafaxine ER [Effexor ER] 75 mg PO DAILY 05/10/20 05/10/20 - Allergies Allergies/Adverse Reactions: Allergies Allergy/AdvReac Type Severity Reaction Status Date / Time Sulfa (Sulfonamide Allergy Unknown Unknown Verified 05/10/20 16:11 Antibiotics) - Social History Does the pt smoke?: No Smoking Status: Never smoker Does the pt drink ETOH?: Yes Does the pt have substance abuse?: No - Immunizations Immunizations are current?: Yes - POLST Patient has POLST: No POLST Status: Full Code PD ED PE NORMAL - Vitals Vital signs reviewed: Yes - General General: Alert and oriented X 3, No acute distress, Other (Slightly intoxicated but fairly cogent an excellent historian remembering us meeting a few years ago.) - HEENT HEENT: PERRL, EOMI - Neck Neck: Supple, no meningeal sign, No bony TTP - Cardiac Cardiac: RRR, No murmur - Respiratory Respiratory: No respiratory distress, Clear bilaterally - Abdomen Abdomen: Non tender - Back Back: No CVA TTP, No spinal TTP - Derm Derm: Normal color, Warm and dry - Extremities Extremities: No edema, No calf tenderness / cord - Neuro Neuro: Alert and oriented X 3, Normal speech - Psych Psych: Normal mood, Normal affect Results - Vitals Vitals: Vital Signs - 24 hr 05/10/20 05/10/20 05/10/20 16:06 17:21 17:48 Temperature 37.1 C 37.4 C 37.0 C Heart Rate 87 90 84 Respiratory 16 18 16 Rate Blood Pressure 152/97 H 141/97 H 139/60 H O2 Saturation 100 100 98 Oxygen O2 Source Room air - Labs Labs: Laboratory Tests 05/10/20 05/10/20 16:23 16:23 WBC 6.0 RBC 3.63 L Hgb 12.6 Hct 36.9 L MCV 101.7 H MCH 34.7 H MCHC 34.1 RDW 12.5 Plt Count 259 MPV 9.2 Neut # (Auto) 2.8 Lymph # (Auto) 2.8 [place] # (Auto) 0.2 Eos # (Auto) 0.0 Baso # (Auto) 0.0 Absolute Nucleated RBC 0.00 Nucleated RBC % 0.0 Sodium 145 Potassium 3.9 Chloride 101 Carbon Dioxide 24 Anion Gap 20.0 H BUN 16 Creatinine 0.9 Estimated GFR (MDRD) 64 L Glucose 94 Calcium 8.7 Magnesium 2.2 Total Bilirubin 0.5 AST 49 H ALT 33 Alkaline Phosphatase 76 Total Protein 7.5 Albumin 4.1 Globulin 3.4 Albumin/Globulin Ratio 1.2 Lipase 34 Ethyl Alcohol 285.1 PD MEDICAL DECISION MAKING - ED course ED course: 59-year-old woman presents with alcohol intoxication which seems uncomplicated. She declined to talk to social work nor is she interested in going to detox. She was allowed to sober up for a time and she is calling a sober neighbor to give her a ride home. On discharge she was clinically sober without slurred speech, altered mentation and she was observed walking normally. She understands she cannot drive tonight. Departure - Departure Disposition: 01 Home, Self Care Clinical Impression: Alcohol intoxication Qualifiers: Complication of substance-induced condition: uncomplicated Qualified Code(s): F10.920 - Alcohol use, unspecified with intoxication, uncomplicated Condition: Stable Record reviewed to determine appropriate education?: Yes Instructions: ED Alcohol Intoxication Comments: Follow-up with your doctor, also consider Alcoholics Anonymous or other outpatient programs for help with quitting alcohol. Return if worse or if you change your mind about inpatient detox. Discharge Date/Time: 05/10/20 17:50
[2020-05-10 16:31] LABS: BASOPHILS % (AUTO) 0.7 %; EOSINOPHILS % (AUTO) 0.7 %; HCT - HEMATOCRIT 36.9 % (37.0-47.0); HGB - HEMOGLOBIN 12.6 g/dL (12.0-16.0); LYMPHOCYTES # (AUTO) 2.8 10^3/uL (1.5-3.5); MEAN CORPUSCULAR HEMOGLOBIN 34.7 pg (27.0-31.0); MEAN CORPUSCULAR HGB CONC 34.1 g/dL (32.0-36.0); MEAN CORPUSCULAR VOLUME 101.7 fL (81.0-99.0); MEAN PLATELET VOLUME 9.2 fL (7.9-10.8); MONOCYTES # (AUTO) 0.2 10^3/uL (0.0-1.0); NEUTROPHILS # (AUTO) 2.8 10^3/uL (1.5-6.6); NEUTROPHILS % (AUTO) 47.4 %; PLT - PLATELET COUNT 259 10^3/uL (130-450); RED BLOOD COUNT 3.63 10^6/uL (4.20-5.40); RED CELL DISTRIBUTION WIDTH 12.5 % (12.0-15.0)
[2020-05-10 16:46] LABS: ALBUMIN 4.1 g/dL (3.2-5.5); ALBUMIN/GLOBULIN RATIO 1.2 (1.0-2.2); BILIRUBIN,TOTAL 0.5 mg/dL (0.2-1.0); CALCIUM 8.7 mg/dL (8.5-10.3); CREATININE 0.9 mg/dL (0.4-1.0); ETOH - ETHANOL 285.1 mg/dL; MAGNESIUM 2.2 mg/dL (1.7-2.8); POTASSIUM 3.9 mmol/L (3.5-5.0); TOTAL PROTEIN 7.5 g/dL (6.7-8.2)
--- NOTE | 2020-05-10 16:52 | CT Report ---
PROCEDURE: CERVICAL SPINE WO INDICATIONS: head inj etoh TECHNIQUE: Noncontrast 3 mm thick sections acquired from the skull base to the T4 level. Sagittal and coronal r eformats were then constructed. For radiation dose reduction, the following was used: automated exp osure control, adjustment of mA and/or kV according to patient size. COMPARISON: Correlation is made with the accompanying head CT, 05/10/2020 FINDINGS: Image quality: Excellent. Bones: No fractures or dislocations. Visualized superior ribs are intact. Degenerative changes are seen, with at least moderate disc space narrowing at C4-C5, C5-C6, and C6-C7 . Endplate irregularity and sclerosis are seen, which are worst at the C5-C6 level. There is overall straightening of the normal cervical lordosis. Soft tissues: Prevertebral soft tissues are normal in thickness. No paravertebral hematomas. No ap ical pneumothoraces. IMPRESSION: No displaced fractures are seen. Cervical spine degenerative changes are seen, which are worst at C5-C6. Reviewed by: Darryl Alvarez MD on 05/10/2020 3:51 PM AKST Approved by: Darryl Alvarez MD on 05/10/2020 3:51 PM AKST Station ID: [id number]
--- NOTE | 2020-05-10 16:53 | CT Report ---
PROCEDURE: HEAD WO INDICATIONS: head inj etoh TECHNIQUE: Noncontrast 4.5 mm thick angled axial sections acquired from the foramen magnum to the vertex. For r adiation dose reduction, the following was used: automated exposure control, adjustment of mA and/or kV according to patient size. COMPARISON: Correlation is made with the accompanying cervical spine CT, 05/10/2020 FINDINGS: Image quality: Excellent. CSF spaces: Basal cisterns are patent. No extra-axial fluid collections. Ventricles are normal in size and shape. Brain: No midline shift. No intracranial masses or hemorrhage. Mendes-white matter interface is norm al. Skull and face: Calvarium and visualized facial bones are intact, without suspicious lesions. Sinuses: Visualized sinuses and mastoids are clear. IMPRESSION: No acute intracranial abnormality is seen. No intracranial hemorrhage is seen. Reviewed by: Darryl Alvarez MD on 05/10/2020 3:52 PM [place] Approved by: Darryl Alvarez MD on 05/10/2020 3:52 PM [facility] Station ID: [id number]
[2020-05-10 17:50] VITALS: BP 139/60
== END 2020-05-10 17:50 | disposition home or self-care (01) ==
LOC: EDUNIT# → ED 15:54
DX: F10.129 Alcohol abuse with intoxication, unspecified (principal)
CPT/HCPCS: 36415; 70450; 72125; 80053; 80320; 83690; 83735; 85025; 96365; 99283; 99284; J3411; J7040

== ENCOUNTER 2020-07-04 15:07 | Outpatient (CLI) | payer MEDICAID ==
--- NOTE | 2020-07-05 08:26 | Mammography Report ---
BILATERAL DIGITAL SCREENING MAMMOGRAM 3D/2D: 07/04/2020 CLINICAL: Family history of breast cancer. Family history of breast cancer. Comparison is made to exam dated: 09/20/2013 mammogram - [facility]. There are sca ttered fibroglandular elements in both breasts. There is a 6 mm round asymmetry with an obscured and spiculated margin in the left breast at 2 o'cloc k middle depth. This is more prominent. No other significant masses, calcifications, or other findings are seen in either breast. IMPRESSION: INCOMPLETE: NEEDS ADDITIONAL IMAGING EVALUATION The 6 mm round asymmetry in the left breast is indeterminate. A diagnostic mammogram and ultrasound is recommended. This exam was interpreted at Station ID: [id number]. NOTE: For mammograms, a report in lay terms will be sent to the patient. Approximately 15% of breast malignancies will not be visualized mammographically. In the management of a palpable breast mass, a negative mammogram must not discourage biopsy of a clinically suspicious lesion. Electronically Signed By: Abby [email or web address]/[email or web address]:07/04/2020 16:16:47 ACR BI-RADS Category 0: Incomplete 3340F PARENCHYMAL PATTERN: (A) - The breast(s) demonstrate(s) scattered fibroglandular densities. BI-RADS CATEGORY: (0) - 0 Mammo and [place] [id number] Immediate follow-up LATERALITY: (B)
== END 2020-07-04 15:08 | disposition home or self-care (01) ==
LOC: DI.S 15:07
DX: Z12.31 Encounter for screening mammogram for malignant neoplasm of breast (principal); R92.8 Other abnormal and inconclusive findings on diagnostic imaging of breast; Z80.3 Family history of malignant neoplasm of breast

== ENCOUNTER 2020-08-09 11:50 | Day surgery (SDC) | payer MEDICAID ==
[2020-08-09] MEDS ORDERED: LACTATED RINGERS 1,000 ML IV ONE ×2 (12:39→13:48)
[2020-08-09] MEDS ORDERED: fentaNYL 250 MCG/5 ML VIAL ONE (13:00)
[2020-08-09] MEDS ORDERED: MIDAZOLAM 2 MG/2 ML VIAL ONE ×2 (13:00→13:15)
[2020-08-09 14:05] VITALS: BP 100/53
== END 2020-08-09 11:51 | disposition home or self-care (01) ==
LOC: SDS 11:50
PROVIDERS: ATTEND Surgery
PROC: 0DBL8ZZ Excision of Transverse Colon, Via Natural or Artificial Opening Endoscopic (ICD-10-PCS; 2020-08-09)
PROC: 0DBH8ZZ Excision of Cecum, Via Natural or Artificial Opening Endoscopic (ICD-10-PCS; 2020-08-09)
PROC: 0DBK8ZZ Excision of Ascending Colon, Via Natural or Artificial Opening Endoscopic (ICD-10-PCS; principal; 2020-08-09 13:00)
DX: Z12.11 Encounter for screening for malignant neoplasm of colon (principal); D12.0 Benign neoplasm of cecum; D12.2 Benign neoplasm of ascending colon; D12.3 Benign neoplasm of transverse colon; K57.30 Diverticulosis of large intestine without perforation or abscess without bleeding; K64.8 Other hemorrhoids; K64.4 Residual hemorrhoidal skin tags
CPT/HCPCS: 45385; J3010; J7120

== ENCOUNTER 2020-08-16 12:47 | Outpatient (CLI) | payer MEDICAID ==
--- NOTE | 2020-08-17 10:49 | Ultrasound Report ---
LIMITED ULTRASOUND OF LEFT BREAST AND AXILLA: 08/16/2020 CLINICAL: Patient returns today to evaluate a focal asymmetry in the left breast. Comparison is made to exams dated: 08/16/2020 mammogram, 07/04/2020 mammogram, 09/20/2013 mammogram, an d 05/08/2009 mammogram - [facility]. Color flow and real-time ultrasound of the left breast 2-3 o'clock, and axilla regions were performe d on the areas of interest. Mendes scale images of the real-time examination were reviewed. There is a 0.5 cm x 0.6 cm x 0.3 cm oval mass with an indistinct margin in the left breast at 2 o'marylin ck middle depth. This oval mass is hypoechoic. This correlates with mammography findings. Color fl ow imaging demonstrates that there is an adjacent vascularity. No significant abnormalities were seen sonographically in the left axilla. IMPRESSION: SUSPICIOUS OF MALIGNANCY The 0.5 cm x 0.6 cm x 0.3 cm oval mass in the left breast is suspicious of malignancy. An ultrasound guided biopsy is recommended. The findings were discussed with the patient at the conclusion of the study by Dr. Zee. This exam was interpreted at Station ID: [id number]. Electronically Signed By: Hussain Leyva M.D. ddp/:08/16/2020 16:01:00 Ultrasound BI-RADS: 4 Suspicious for malignancy BI-RADS CATEGORY: (4) - 4 None [id number] Immediate follow-up LATERALITY: ()
--- NOTE | 2020-08-17 10:49 | Mammography Report ---
UNILATERAL LEFT DIGITAL DIAGNOSTIC MAMMOGRAM 3D/2D: 08/16/2020 CLINICAL: Patient returns today to evaluate a focal asymmetry in the left breast. Comparison is made to exams dated: 07/04/2020 mammogram, 09/20/2013 mammogram, and 05/08/2009 mammogram - [facility]. There are scattered fibroglandular elements in left breast. There is an oval equal density mass with an indistinct and circumscribed margin in the left breast at 3 o'clock middle depth. No other significant masses or calcifications are seen in the breast. IMPRESSION: INCOMPLETE: NEEDS ADDITIONAL IMAGING EVALUATION The oval equal density mass in the left breast is indeterminate. An ultrasound is recommended. Ultrasound will be performed immediately following the current exam. This exam was interpreted at Station ID: [id number]. NOTE: For mammograms, a report in lay terms will be sent to the patient. Approximately 15% of breast malignancies will not be visualized mammographically. In the management of a palpable breast mass, a negative mammogram must not discourage biopsy of a clinically suspicious lesion. Electronically Signed By: Hussain Leyva M.D. ddp/:08/16/2020 13:27:25 ACR BI-RADS Category 0: Incomplete 3340F PARENCHYMAL PATTERN: (A) - The breast(s) demonstrate(s) scattered fibroglandular densities. BI-RADS CATEGORY: (0) - 0 Ultrasound [id number] Immediate follow-up LATERALITY: (B)
== END 2020-08-16 12:48 | disposition home or self-care (01) ==
LOC: DI 12:47
PROVIDERS: ATTEND Physician Assistant
DX: N63.21 Unspecified lump in the left breast, upper outer quadrant (principal)

== ENCOUNTER 2020-08-27 17:52 | Outpatient (CLI) | payer MEDICAID ==
[2020-08-27 20:15] LABS: BASOPHILS % (AUTO) 0.7 %; EOSINOPHILS # (AUTO) 0.1 10^3/uL (0.0-0.7); EOSINOPHILS % (AUTO) 2.3 %; HCT - HEMATOCRIT 38.3 % (37.0-47.0); HGB - HEMOGLOBIN 12.8 g/dL (12.0-16.0); LYMPHOCYTES # (AUTO) 2.2 10^3/uL (1.5-3.5); LYMPHOCYTES % (AUTO) 36.7 %; MEAN CORPUSCULAR HEMOGLOBIN 33.4 pg (27.0-31.0); MEAN CORPUSCULAR HGB CONC 33.4 g/dL (32.0-36.0); MEAN PLATELET VOLUME 10.3 fL (7.9-10.8); MONOCYTES # (AUTO) 0.7 10^3/uL (0.0-1.0); PLT - PLATELET COUNT 274 10^3/uL (130-450); RED BLOOD COUNT 3.83 10^6/uL (4.20-5.40); RED CELL DISTRIBUTION WIDTH 12.9 % (12.0-15.0); WHITE BLOOD COUNT 6.1 x10^3/uL (4.8-10.8)
[2020-08-27 20:49] LABS: % IRON SATURATION 51 % (20-50); IRON 133 ug/dL (28-170); TOTAL IRON BINDING CAPACITY 263 ug/dL (250-450); TRANSFERRIN 188 mg/dL (192-382)
[2020-08-27 20:53] LABS: THYROID STIMULATING HORMONE 2.48 uIU/mL (0.34-5.60)
[2020-08-27 20:57] LABS: FREE T4 (FREE THYROXINE) 0.92 ng/dL (0.58-1.64)
[2020-08-27 21:00] LABS: FERRITIN 1000.1 ng/mL (11.0-306.8)
== END 2020-08-27 17:53 | disposition home or self-care (01) ==
LOC: DI 17:52
PROVIDERS: ATTEND Physician Assistant
DX: L65.9 Nonscarring hair loss, unspecified (principal)
CPT/HCPCS: 36415; 82728; 83540; 84439; 84443; 84466; 84480; 84630; 85025

== ENCOUNTER 2020-08-31 21:39 | Outpatient (CLI) | payer MEDICAID | END 2020-08-31 21:40 | disposition critical access hospital (66) | LOC: EMS 21:39 | DX: S09.90XA Unspecified injury of head, initial encounter (principal); M54.2 Cervicalgia; M54.9 Dorsalgia, unspecified; M25.512 Pain in left shoulder; M25.511 Pain in right shoulder; W10.9XXA Fall (on) (from) unspecified stairs and steps, initial encounter; Y92.008 Other place in unspecified non-institutional (private) residence as the place of occurrence of the external cause | CPT/HCPCS: A0425; A0429; A0999 ==

== ENCOUNTER 2020-08-31 22:15 | Observation (INO) | payer MEDICAID ==
[2020-08-31] MEDS ORDERED: SODIUM CHLORIDE 0.9% 1,000 ML IV STA ×2 (22:27→23:33)
[2020-08-31] MEDS ORDERED: MORPHINE 10 MG/ML VIAL IVP STA (22:28)
--- NOTE | 2020-08-31 22:31 | ED Physician Documentation ---
History of Present Illness - Stated complaint Stated Complaint: FELL DOWN 12 STAIRS, NECK/BACK/BILAT SHOULDER PAIN - Chief complaint Chief Complaint: Trauma Hd/Nk - History obtained from History obtained from: Patient, EMS - Additonal information Additional information: 60-year-old woman with history of high blood pressure, not on blood thinners, presents with fall down 12 stairs after going on a drinking binge this evening. She is unsure whether he she hit her head but is complaining of severe midline upper back pain and mid lower back pain. Also with midline chest wall pain. Further initial history limited by patient emotional distress Review of Systems Unable to obtain: Intoxicated PD PAST MEDICAL HISTORY - Past Medical History Cardiovascular: Hypertension Respiratory: None Neuro: Tremors Endocrine/Autoimmune: None GI: GERD RETORT OPERATOR: None : None HEENT: None Psych: Depression Musculoskeletal: Osteoarthritis, Chronic back pain Derm: None - Past Surgical History Past Surgical History: Yes Ortho: Other - Present Medications Home Medications: Ambulatory Orders Medication Instructions Recorded Confirmed lisinopriL [Lisinopril] 10 mg PO DAILY 09/22/17 08/31/20 Metoprolol Tartrate [Lopressor] 50 mg PO BID 09/23/17 08/31/20 Escitalopram Oxalate 5 mg PO DAILY 05/10/20 08/31/20 Venlafaxine ER [Effexor ER] 150 mg PO DAILY 05/10/20 08/31/20 - Allergies Allergies/Adverse Reactions: Allergies Allergy/AdvReac Type Severity Reaction Status Date / Time Sulfa (Sulfonamide Allergy Unknown Unknown Verified 08/31/20 22:27 Antibiotics) - Social History Does the pt smoke?: No Smoking Status: Never smoker Does the pt drink ETOH?: Yes Does the pt have substance abuse?: No - Immunizations Immunizations are current?: Yes - POLST Patient has POLST: No POLST Status: Full Code PD ED PE NORMAL - Vitals Vital signs reviewed: Yes - General General: Alert and oriented X 3, No acute distress, Well developed/nourished, Other (tearful, mildly intoxicated) - HEENT HEENT: Atraumatic, PERRL, EOMI - Neck Neck: No bony TTP - Cardiac Cardiac: RRR, Other (anterior sternal wall ttp) - Respiratory Respiratory: No respiratory distress, Clear bilaterally - Abdomen Abdomen: Non tender, Non distended - Back Back: Other (midthoracic and upper lumbar midline ttp) - Derm Derm: Normal color, Other (abrasion to upper lip) - Extremities Extremities: No deformity - Neuro Neuro: Alert and oriented X 3, No motor deficit, No sensory deficit - Psych Psych: Other (intoxicated, tearful appearing) Results - Vitals Vitals: Vital Signs - 24 hr 08/31/20 08/31/20 09/01/20 22:22 22:41 00:11 Temperature 36.8 C Heart Rate 66 66 75 Respiratory 20 18 17 Rate Blood Pressure 128/92 H 134/83 H 128/90 H O2 Saturation 96 100 96 09/01/20 01:20 Temperature Heart Rate 69 Respiratory 17 Rate Blood Pressure 150/91 H O2 Saturation 100 Oxygen O2 Source Room air - Labs Labs: Laboratory Tests 08/31/20 08/31/20 08/31/20 22:36 22:36 22:36 WBC 11.0 H RBC 3.42 L Hgb 11.5 L Hct 35.3 L MCV 103.2 H MCH 33.6 H MCHC 32.6 RDW 13.1 Plt Count 276 MPV 9.8 Neut # (Auto) 7.6 H Lymph # (Auto) 2.7 [place] # (Auto) 0.5 Eos # (Auto) 0.1 Baso # (Auto) 0.1 Absolute Nucleated RBC 0.00 Nucleated RBC % 0.0 PT 11.5 INR 1.0 APTT 26.1 Sodium 143 Potassium 3.8 Chloride 109 Carbon Dioxide 23 Anion Gap 11.0 BUN 32 H Creatinine 1.1 H Estimated GFR (MDRD) 51 L Glucose 112 H Calcium 8.4 L Total Bilirubin 0.6 AST 62 H ALT 61 H Alkaline Phosphatase 73 Total Protein 7.1 Albumin 4.1 Globulin 3.0 Albumin/Globulin Ratio 1.4 Lipase 38 Nasal Adenovirus (PCR) Nasal B. parapertussis DNA (PCR) Nasal Coronavir 229E PCR Nasal Coronavir HKU1 PCR Nasal Coronavir NL63 PCR Nasal Coronavir OC43 PCR Nasal Enterovir/Rhinovir PCR Nasal Influenza B PCR Nasal Influenza A PCR Nasal Parainfluen 1 PCR Nasal Parainfluen 2 PCR Nasal Parainfluen 3 PCR Nasal Parainfluen 4 PCR Nasal RSV (PCR) Nasal B.pertussis DNA PCR Nasal C.pneumoniae (PCR) Jamal Human Metapneumo PCR Nasal M.pneumoniae (PCR) Nasal SARS-CoV-2 (PCR) Urine Opiates Screen Ur Oxycodone Screen Urine Methadone Screen Ur Propoxyphene Screen Ur Barbiturates Screen Ur Tricyclics Screen Ur Phencyclidine Scrn Ur Amphetamine Screen U Methamphetamines Scrn U Benzodiazepines Scrn Urine Cocaine Screen U Cannabinoids Screen Ethyl Alcohol 321.8 09/01/20 09/01/20 00:35 01:05 WBC RBC Hgb Hct MCV MCH MCHC RDW Plt Count MPV Neut # (Auto) Lymph # (Auto) [place] # (Auto) Eos # (Auto) Baso # (Auto) Absolute Nucleated RBC Nucleated RBC % PT INR APTT Sodium Potassium Chloride Carbon Dioxide Anion Gap BUN Creatinine Estimated GFR (MDRD) Glucose Calcium Total Bilirubin AST ALT Alkaline Phosphatase Total Protein Albumin Globulin Albumin/Globulin Ratio Lipase Nasal Adenovirus (PCR) NOT DETECTED Nasal B. parapertussis DNA (PCR) NOT DETECTED Nasal Coronavir 229E PCR NOT DETECTED Nasal Coronavir HKU1 PCR NOT DETECTED Nasal Coronavir NL63 PCR NOT DETECTED Nasal Coronavir OC43 PCR NOT DETECTED Nasal Enterovir/Rhinovir PCR NOT DETECTED Nasal Influenza B PCR NOT DETECTED Nasal Influenza A PCR NOT DETECTED Nasal Parainfluen 1 PCR NOT DETECTED Nasal Parainfluen 2 PCR NOT DETECTED Nasal Parainfluen 3 PCR NOT DETECTED Nasal Parainfluen 4 PCR NOT DETECTED Nasal RSV (PCR) NOT DETECTED Nasal B.pertussis DNA PCR NOT DETECTED Nasal C.pneumoniae (PCR) NOT DETECTED Jamal Human Metapneumo PCR NOT DETECTED Nasal M.pneumoniae (PCR) NOT DETECTED Nasal SARS-CoV-2 (PCR) NOT DETECTED Urine Opiates Screen POSITIVE H Ur Oxycodone Screen NEGATIVE Urine Methadone Screen NEGATIVE Ur Propoxyphene Screen NEGATIVE Ur Barbiturates Screen NEGATIVE Ur Tricyclics Screen NEGATIVE Ur Phencyclidine Scrn NEGATIVE Ur Amphetamine Screen NEGATIVE U Methamphetamines Scrn NEGATIVE U Benzodiazepines Scrn NEGATIVE Urine Cocaine Screen NEGATIVE U Cannabinoids Screen NEGATIVE Ethyl Alcohol PD MEDICAL DECISION MAKING - ED course ED course: 60-year-old woman presents status post fall down 12 stairs while intoxicated. We will obtain CT imaging to evaluate for trauma. d/w merged with [facility] spine surgeon Dr. Balbir Salazar who recommends medicine admission for pain control. no surgical intervention needed. Departure - Departure Disposition: ED Place in Observation Clinical Impression: T11 vertebral fracture, Fall down stairs, Alcohol abuse
[2020-08-31] MEDS ORDERED: IOVERSOL 320 100 ML VIAL IVP ONE ×2 (22:46→23:22)
[2020-08-31 22:48] LABS: BASOPHILS # (AUTO) 0.1 10^3/uL (0.0-0.1); BASOPHILS % (AUTO) 0.6 %; EOSINOPHILS # (AUTO) 0.1 10^3/uL (0.0-0.7); EOSINOPHILS % (AUTO) 0.5 %; HCT - HEMATOCRIT 35.3 % (37.0-47.0); HGB - HEMOGLOBIN 11.5 g/dL (12.0-16.0); LYMPHOCYTES # (AUTO) 2.7 10^3/uL (1.5-3.5); LYMPHOCYTES % (AUTO) 24.3 %; MEAN CORPUSCULAR HEMOGLOBIN 33.6 pg (27.0-31.0); MEAN CORPUSCULAR HGB CONC 32.6 g/dL (32.0-36.0); MEAN CORPUSCULAR VOLUME 103.2 fL (81.0-99.0); MEAN PLATELET VOLUME 9.8 fL (7.9-10.8); MONOCYTES # (AUTO) 0.5 10^3/uL (0.0-1.0); MONOCYTES % (AUTO) 4.5 %; NEUTROPHILS # (AUTO) 7.6 10^3/uL (1.5-6.6); NEUTROPHILS % (AUTO) 68.8 %; PLT - PLATELET COUNT 276 10^3/uL (130-450); RED BLOOD COUNT 3.42 10^6/uL (4.20-5.40); RED CELL DISTRIBUTION WIDTH 13.1 % (12.0-15.0)
--- OUTSIDE RECORDS SUMMARY | 2020-08-31 22:48 | EXTERNAL MEDICAL SUMMARY RPT | Continuity of Care Document ---
:1960 Demographics Phone Unavailable Preferred Language Unknown Marital Status Unknown Congregational Affiliation Unknown Race Unknown Ethnic Group Unknown Author Organization [facility] Address [address] [place] [address] Phone Allergies Encounters Medications Problems Results
[2020-08-31 22:53] LABS: PT - PROTHROMBIN TIME 11.5 secs (9.9-12.6)
[2020-08-31 23:00] LABS: PARTIAL THROMBOPLASTIN TIME 26.1 secs (24.9-33.3)
[2020-08-31 23:03] LABS: ALBUMIN 4.1 g/dL (3.2-5.5); ALBUMIN/GLOBULIN RATIO 1.4 (1.0-2.2); BILIRUBIN,TOTAL 0.6 mg/dL (0.2-1.0); CALCIUM 8.4 mg/dL (8.5-10.3); CREATININE 1.1 mg/dL (0.4-1.0); ETOH - ETHANOL 321.8 mg/dL; POTASSIUM 3.8 mmol/L (3.5-5.0); TOTAL PROTEIN 7.1 g/dL (6.7-8.2)
[2020-09-01] MEDS ORDERED: MORPHINE 2 MG/ML CARPUJECT IVP STA (00:39)
[2020-09-01 01:14] LABS: MUDS CUTOFF CONCENTRATIONS CUTOFF CONC BELOW:
[2020-09-01 01:24] LABS: AMPHETAMINE SCREEN,URINE NEGATIVE (NEGATIVE); BARBITURATE SCREEN,UR NEGATIVE (NEGATIVE); BENZODIAZEPINES SCREEN, URINE NEGATIVE (NEGATIVE); COCAINE SCREEN URINE NEGATIVE (NEGATIVE); METHADONE SCREEN, URINE NEGATIVE (NEGATIVE); METHAMPHETAMINES SCREEN, URINE NEGATIVE (NEGATIVE); OPIATE SCREEN, URINE POSITIVE (NEGATIVE); OXYCODONE SCREEN, URINE NEGATIVE (NEGATIVE); PROPOXYPHENE SCREEN, URINE NEGATIVE (NEGATIVE); THC CANNABINOID SCREEN, URINE NEGATIVE (NEGATIVE); TRICYCLIC ANTIDEPRESSANT,URINE NEGATIVE (NEGATIVE)
[2020-09-01 01:28] LABS: B. PARAPERTUSSIS- RESP PCR PAN NOT DETECTED; B. PERTUSSIS- RESP PCR PANEL NOT DETECTED; C. PNEUMONIAE- RESP PCR PANEL NOT DETECTED; CORONAVIRUS 229E-RESP PCR NOT DETECTED; CORONAVIRUS HKU1-RESP PCR NOT DETECTED; CORONAVIRUS NL63-RESP PCR NOT DETECTED; CORONAVIRUS OC43-RESP PCR NOT DETECTED; HUMAN METAPNEUMOVIRUS NOT DETECTED; INFLUENZA A- RESP PCR PANEL NOT DETECTED; INFLUENZA B - RESP PCR PANEL NOT DETECTED; M. PNEUMONIAE- RESP PCR PANEL NOT DETECTED; PARAINFLUENZA VIRUS 1 NOT DETECTED; PARAINFLUENZA VIRUS 2 NOT DETECTED; PARAINFLUENZA VIRUS 3 NOT DETECTED; PARAINFLUENZA VIRUS 4 NOT DETECTED; RHINOVIRUS/ENTEROVIRUS NOT DETECTED; RSV- RESP PCR PANEL NOT DETECTED; SARS-CoV-2 -RESP PCR PANEL NOT DETECTED
[2020-09-01] MEDS ORDERED: ONDANSETRON 4 MG/2 ML VIAL IVP PRN (01:48)
[2020-09-01] MEDS ORDERED: HYDROmorphone 0.5 MG/0.5 ML SYRINGE IVP PRN (01:48)
[2020-09-01] MEDS ORDERED: SODIUM CHLORIDE FLUSH 0.9% 10 ML SYRINGE IVP PRN (01:48)
[2020-09-01] MEDS ORDERED: oxyCODONE 5 MG TABLET PO PRN ×2 (01:48)
[2020-09-01] MEDS ORDERED: KETOROLAC 30 MG/ML VIAL IVP PRN (01:50)
--- NOTE | 2020-09-01 01:55 | HISTORY & PHYSICAL EXAMINATION ---
Chief Complaint - Chief Complaint Chief Complaint: Fall and back pain History of Present Illness - Admitted From Admitted From:: Home - History Obtained From Records Reviewed: Yes History obtained from: Patient, ER Physician, EMR - History of Present Illness HPI Comment/Other: This is a 60-year-old female with a past medical history significant for hypertension and depression who presents today after having a fall at home. She states she is walking up the stairs at home when she slipped and fell from about the 6 step. She denies any loss of consciousness but she cannot recall if she hit her head or not. She states is is not the first time she has fallen down her steps. She denies any chest pain or dyspnea, palpitations. She does complain of lower to mid back pain. Denies any headache, change in vision, numbness or tingling. Denies any difficulty urinating, dysuria, urgency, hematuria. She states her pain is quite significant initially but this is improved after receiving IV morphine and is now quite minimal. She does complain of some neck pain as well but is worse with movement. She states she was drinking alcohol last night and believes she had at least 2 drinks of vodka with Powerade. She denies any daily alcohol use and reports her last drink prior to this was about 1 week ago. She was celebrating a new job she will be starting. In the emergency department, she underwent a CT of the cervical spine which was unremarkable. CT chest with contrast revealed an acute anterior coronary and superior endplate fracture at T11. This finding was discussed with [facility] who felt that surgical intervention was not warranted at this time. Given the patient's ongoing pain, medicine was consulted for ad mission. 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 Denies any other family history. Living arrangement: At home Living Situation: Alone Social History Notes: She lives at home alone. She denies daily alcohol use. Denies a history of smoking. 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 - POLST Patient has POLST: No POLST Status: Full Code Meds/Allgy - Home Medications Home Medications: Ambulatory Orders Medication Instructions Recorded Confirmed lisinopriL [Lisinopril] 10 mg PO DAILY 09/22/17 08/31/20 Metoprolol Tartrate [Lopressor] 50 mg PO BID 09/23/17 08/31/20 Escitalopram Oxalate 5 mg PO DAILY 05/10/20 08/31/20 Venlafaxine ER [Effexor ER] 150 mg PO DAILY 05/10/20 08/31/20 - Allergies Allergies/Adverse Reactions: Allergies Allergy/AdvReac Type Severity Reaction Status Date / Time Sulfa (Sulfonamide Allergy Unknown Unknown Verified 08/31/20 22:27 Antibiotics) Review of Systems - Constitutional Constitutional: denies: Fever, Chills - Eyes Eyes: denies: Blurred vision, Vision loss - Cardiovascular Cariovascular: denies: Palpitations, Chest pain, Syncope, Exertional dyspnea, Decr. exercise tolerance - Respiratory Respiratory: denies: SOB at rest, SOB with exertion - Gastrointestinal Gastrointestinal: denies: Abdominal pain, Nausea, Vomiting - Genitourinary Genitourinary: denies: Dysuria, Frequency, Urgency, Hematuria - Musculoskeletal Musculoskeletal: reports: Back pain. denies: Muscle weakness - Integumentary Integumentary: denies: Rash - Neurological Neurological: denies: General weakness, Focal weakness, Numbness - Hematologic/Lymphatic Hematologic/Lymphatic: denies: Bruising, Bleeding tendencies - All Other Systems All Other Systems: reports: Reviewed and negative Prior Level of Functionality: She is independent with her ADL's. Exam - Vital Signs Reviewed Vital Signs: Yes Vital Signs: Vital Signs x48h Temp Pulse Resp BP Pulse Ox 09/01/20 01:20 69 17 150/91 H 100 09/01/20 00:11 75 17 128/90 H 96 08/31/20 22:41 66 18 134/83 H 100 08/31/20 22:22 36.8 C 66 20 128/92 H 96 - Physical Exam General Appearance: positive: No acute distress, Alert, Other (She appears comfortable sitting in bed.) Eyes Bilateral: positive: Normal inspection, Conjunctivae nml ENT: positive: ENT inspection nml Neck: positive: Nml inspection Respiratory: positive: No respiratory distress. negative: Wheezes, Rales Cardiovascular: positive: Regular rate & rhythm, No murmur. negative: Tachycardia, Systolic murmur Abdomen: positive: Non-tender, No distention. negative: Tenderness, Guarding, Rebound Back: positive: Nml inspection, Other (There is mild tenderness over the lower thoracic spine. No deformities noted. No paraspinal tenderness in the lumbar spine. She does have paraspinal cervical tenderness.) Skin: positive: Warm, Dry Extremities: positive: No pedal edema Neurologic/Psychiatric: positive: Motor nml, Sensation nml. negative: Di soriented to person, Disoriented to place Conclusion/Plan - Problem List (1) T11 vertebral fracture Conclusion/Plan: This is secondary to the fall at home. Imaging revealed an acute anterior coronary and superior endplate fracture at T11. This was discussed with [facility] who thought surgical intervention was not warranted. Despite receiving multiple doses of IV morphine in the emergency department, she still has pain with movement and ambulation has been difficult and so we will place her in observation for pain control. We will start her on 1000 mg of Tylenol 3 times daily with Toradol and Dilaudid as needed. We will also start her on Robaxin as needed. Will consider physical therapy consult. Qualifiers: Encounter type: initial encounter (2) Fall down stairs Conclusion/Plan: This is a mechanical fall which patient tributes to her narrow steps. She has been to the emergency department in the past for falls. Qualifiers: Encounter type: initial encounter Qualified Code(s): W10.8XXA - Fall (on) (from) other stairs and steps, initial encounter (3) Alcohol intoxication Conclusion/Plan: Her alcohol level of the greater than 300 she does admit to alcohol use prior to coming to the emergency department. Although she denies any alcohol use, we will start her on thiamine and multivitamin. We will monitor for evidence of withdrawal. Qualifiers: Complication of substance-induced condition: uncomplicated Qualified Code(s): F10.920 - Alcohol use, unspecified with intoxication, uncomplicated (4) Hypertension Conclusion/Plan: Her blood pressure is elevated in the 150s likely due to pain. We will resume her home lisinopril and metoprolol. - Lab Results Lab results reviewed: Yes Fish Bones: 08/31/20 22:36 08/31/20 22:36 - Diagnostic Imaging Results Diagnostic Imaging Results: positive: Prelim report reviewed Core Measures - Anticipated LOS I expect patient to be DC'd or transferred within 96 hours.: Yes - Issues Hospital Issues and Management Plan: 60-year-old female presents after a fall and found to have a T11 vertebral fracture. Her pain is difficult to control in the emergency department and we are asked to place her in observation for pain control. - DVT/VTE - Prophylaxis VTE/DVT Device ordered at admit?: Yes - Stroke - Rehab Assessment Rehab services assessment to be ordered?: Yes
--- OUTSIDE RECORDS SUMMARY | 2020-09-01 01:58 | EXTERNAL MEDICAL SUMMARY RPT | Continuity of Care Document ---
:1960 Demographics Phone Unavailable Preferred Language Unknown Marital Status Unknown Worship Affiliation Unknown Race Unknown Ethnic Group Unknown Author Organization [facility] Address [address] [phone] Phone Allergies Encounters Medications Problems Results
[2020-09-01] MEDS ORDERED: ACETAMINOPHEN 500 MG TABLET PO SCH ×2 (06:00)
[2020-09-01] MEDS ORDERED: methocarbamoL 500 MG TABLET PO PRN (07:00)
[2020-09-01 07:33] LABS: BASOPHILS # (AUTO) 0.1 10^3/uL (0.0-0.1); BASOPHILS % (AUTO) 0.7 %; EOSINOPHILS % (AUTO) 0.6 %; HCT - HEMATOCRIT 31.6 % (37.0-47.0); HGB - HEMOGLOBIN 10.9 g/dL (12.0-16.0); LYMPHOCYTES # (AUTO) 1.8 10^3/uL (1.5-3.5); LYMPHOCYTES % (AUTO) 26.2 %; MEAN CORPUSCULAR HEMOGLOBIN 34.9 pg (27.0-31.0); MEAN CORPUSCULAR HGB CONC 34.5 g/dL (32.0-36.0); MEAN CORPUSCULAR VOLUME 101.3 fL (81.0-99.0); MEAN PLATELET VOLUME 9.5 fL (7.9-10.8); MONOCYTES # (AUTO) 0.5 10^3/uL (0.0-1.0); MONOCYTES % (AUTO) 7.7 %; NEUTROPHILS # (AUTO) 4.3 10^3/uL (1.5-6.6); NEUTROPHILS % (AUTO) 64.2 %; PLT - PLATELET COUNT 221 10^3/uL (130-450); RED BLOOD COUNT 3.12 10^6/uL (4.20-5.40); RED CELL DISTRIBUTION WIDTH 13.1 % (12.0-15.0); WHITE BLOOD COUNT 6.7 x10^3/uL (4.8-10.8)
[2020-09-01 07:54] LABS: CALCIUM 7.9 mg/dL (8.5-10.3); CREATININE 0.9 mg/dL (0.4-1.0); POTASSIUM 3.9 mmol/L (3.5-5.0)
[2020-09-01] MEDS ORDERED: MULTIVITAMIN TABLET PO SCH (08:00)
--- NOTE | 2020-09-01 08:15 | PHARMACY PROGRESS NOTE ---
- Best Possible Medication History Admit Date and Time: 09/01/20 0148 Processed by: Nursing Medication History completed: Yes Patient Interview: Completed Secondary Source(s): Physician records, Pharmacy records, Insurance records As the person ultimately responsible for medication therapy, providers are able to order a medication from an existing home medication list in [facility] via the "Reconcile Routine" prior to Confirmation of that medication by child support agent. Such practice is discouraged except when the physician, in their clinical judgment, deems that a medical need exists for a medication without regard to previous use.
--- NOTE | 2020-09-01 08:26 | Discharge Plan ---
Discharge Plan Problem Reviewed?: Yes Disposition: Home, Self Care Condition: Fair Prescriptions: oxyCODONE [Roxicodone] 5 mg PO Q4HR PRN #60 tablet PRN Reason: Pain 5 to 7 methocarbamoL [Robaxin] 500 mg PO Q6HR PRN #60 tablet PRN Reason: Spasms Multivitamin/Iron/Folic Acid [Centrum Adults Tablet] 1 each PO DAILY #1 tablet Diet: Regular Activity Restrictions: Activity as Tolerated Driving Restrictions: Yes (no driving within 6 hours of oxycodone or robaxin) Assistance Devices: Walker Weight Bearing: Full Weight Instruction Topics: ED Fx Comp Vertebral Health Concerns: You were celebrating getting a new job and you drink a little bit too much. With your intoxication you lost her balance and fell down at home. You had acute back pain. In the emergency room we found her to have a small fracture where the bone was compressed in the middle of your spine. We label spine bones. The top of your neck is cervical. Your chest is call thoracic. And your lower spine is called lumbar. You have fractured thoracic bone #11. Plan of Treatment: 1. We gave you vitamins associated with overuse of alcohol. Mainly it is thiamine and folic acid. We suggest you take a multivitamin every day and an extra thiamine tablet [id number] on a daily basis. 2. We suggest that you refrain from drinking any alcohol while you are on pain medicines. And when you do drink do not drink more than 1 a day. 3. Pain medicine in the form of oxycodone has been prescribed. You have also been prescribed a muscle relaxant called Robaxin. Oxycodone will be 1 pill every 6 hours as needed. You can take one Tylenol and one Motrin with that oxycodone every 6 hours. You do not have to take the medicine on a regular schedule, but you can take it as needed for your pain. 4. I did ask if there was anyone at home to help you and you said that you were a private person and that your neighbors work. Please be careful. If you find that you cannot be home by yourself, and it is unsafe for you to be home, please come back to the emergency room and we can help you find placement. Care Goals: Over the next few weeks your pain will get gradually better and better and you will be able to move around more freely. Assessment: Patient understands care and treatment plan. Her care goal is to remain at home. She declines help with in-home services, but would like help getting home with a taxi. No Smoking: If you smoke, Please STOP! Call for help. Follow-up with: ANGIE LUDWIG PA-C [Primary Care Provider] -
[2020-09-01 08:39] VITALS: BP 137/89
[2020-09-01] MEDS ORDERED: VENLAFAXINE ER 75 MG CAPSULE PO SCH (09:00)
[2020-09-01] MEDS ORDERED: THIAMINE 100 MG TABLET PO SCH (09:00)
[2020-09-01] MEDS ORDERED: SODIUM CHLORIDE FLUSH 0.9% 10 ML SYRINGE IVP SCH (09:00)
[2020-09-01] MEDS ORDERED: ESCITALOPRAM OXALATE 5 MG PO SCH (09:00)
[2020-09-01] MEDS ORDERED: ENOXAPARIN 40 MG/0.4 ML SYRINGE SUBQ SCH (09:00)
[2020-09-01] MEDS ORDERED: METOPROLOL TARTRATE 50 MG TABLET PO SCH (09:00)
[2020-09-01] MEDS ORDERED: lisinopriL 5 MG TABLET PO SCH (09:00)
--- NOTE | 2020-09-01 09:05 | CT Report ---
PROCEDURE: Abdomen/Pelvis W INDICATIONS: Abdominal trauma, blunt CONTRAST: IV CONTRAST: Optiray 320 ml: 100 PO CONTRAST: *NO PO CONTRAST TECHNIQUE: After the administration of nonionic IV contrast, 5 mm thick sections acquired from the diaphragms to the symphysis. 5 mm thick coronal and sagittal reformats were acquired. For radiation dose reducti on, the following was used: automated exposure control, adjustment of mA and/or kV according to martha ent size. COMPARISON: 09/23/1713. Correlation is also made with the accompanying CT imaging. FINDINGS: Image quality: Excellent. ABDOMEN: Lung bases: Lung bases are clear. Heart size is normal. A small hiatal hernia is incidentally note d. Solid organs: Liver and spleen are normal in size and enhancement. Gallbladder wall does not appear thickened. Biliary system is non dilated. Pancreas enhances normally. No adrenal nodules. Kidn eys demonstrate normal size and enhancement, without hydronephrosis. Peritoneum and bowel: Bowel loops demonstrate normal wall thickness and caliber. No free fluid or a ir. Nodes and vessels: No retroperitoneal or mesenteric adenopathy by size criteria. Aorta and inferior vena cava are normal in size. Incidental note is made of separate origins of the splenic artery and the hepatic artery, without a common celiac artery trunk. Miscellaneous: No ventral hernias. PELVIS: Genitourinary: Bladder wall thickness is normal. Miscellaneous: No inguinal hernias or adenopathy. Bones: No suspicious bony lesions. There are fractures seen involving the superior endplates of T10 and T11, without acute features. There is 10-20% loss of height seen at each of these levels. No pos terior displacement of fracture fragments can be seen. Mild levoconvex scoliotic curvature is seen. IMPRESSION: Fractures of the superior endplates of T10 and T11. No acute posttraumatic solid organ injury can be seen. Incidental note is made of: Small hiatal hernia Note: No significant discrepancy from the preliminary report. Reviewed by: Darryl Alvarez MD on 09/01/2020 8:03 AM NATHAN Approved by: Darryl Alvarez MD on 09/01/2020 8:03 AM AKLONG Station ID: [id number]
--- NOTE | 2020-09-01 09:09 | CT Report ---
PROCEDURE: CHEST W INDICATIONS: Chest trauma, blunt, high energy CONTRAST: IV CONTRAST: Optiray 320 ml: 100 PO CONTRAST: *NO PO CONTRAST TECHNIQUE: After the administration of intravenous contrast, 5 mm thick sections acquired from the pulmonary api darnell to the posterior costophrenic angles. 7 mm thick coronal MIP reformats were acquired. For radia tion dose reduction, the following was used: automated exposure control, adjustment of mA and/or kV according to patient size. COMPARISON: Correlation is made with the accompanying CT examinations, 08/31/2020. FINDINGS: Image quality: Excellent. Lungs and pleura: No acute air space opacities. No pleural effusions or pneumothorax. Central and peripheral airways are patent and normal in caliber. Mediastinum: Heart size is normal. No pericardial effusion. No mediastinal or hilar adenopathy by size criteria. Thoracic aorta and central pulmonary arteries are normal in size. Esophagus is maryan l in caliber. There is a small hiatal hernia. Bones and chest wall: There are acute appearing fractures of the superior endplates of T10 and T11, with 10-20% loss of height centrally. No posterior displacement of fracture fragments can be seen. Th ere is a remote Schmorl's node seen at the superior endplate of L1. Age-appropriate degenerative murry ges are seen. No suspicious bony lesions. No axillary or supraclavicular adenopathy by size criteria. The thyro id is normal in size and there are no incidental findings. Abdomen: Visualized upper abdominal solid organs appear normal. Upper abdominal bowel loops are nor mal in caliber. IMPRESSION: Acute appearing fractures of the superior endplates of T10 and T11, without posterior displacement of fracture fragments. Incidental note is made of: Small hiatal hernia Note: No significant discrepancy from the preliminary report. Reviewed by: Darryl Alvarez MD on 09/01/2020 8:08 AM NATHAN Approved by: Darryl Alvarez MD on 09/01/2020 8:08 AM NATHAN Station ID: [id number]
--- NOTE | 2020-09-01 09:12 | CT Report ---
PROCEDURE: HEAD WO INDICATIONS: Head trauma, mod-severe TECHNIQUE: Noncontrast 4.5 mm thick angled axial sections acquired from the foramen magnum to the vertex. For r adiation dose reduction, the following was used: automated exposure control, adjustment of mA and/or kV according to patient size. COMPARISON: Prior head CT, 05/10/2020. Correlation is made with the accompanying CT studies 08/31/2020. FINDINGS: Image quality: Excellent. CSF spaces: Basal cisterns are patent. No extra-axial fluid collections. Ventricles are normal in size and shape. Brain: No midline shift. No intracranial masses or hemorrhage. Mendes-white matter interface is norm al. Skull and face: Calvarium and visualized facial bones are intact, without suspicious lesions. Sinuses: Visualized sinuses and mastoids are clear. IMPRESSION: No intracranial hemorrhage is seen. No significant intracranial abnormality is seen. Note: No significant discrepancy from the preliminary report. Reviewed by: Darryl Alvarez MD on 09/01/2020 8:11 AM NATHAN Approved by: Darryl Alvarez MD on 09/01/2020 8:11 AM NATHAN Station ID: [id number]
--- NOTE | 2020-09-01 09:14 | CT Report ---
PROCEDURE: CERVICAL SPINE WO INDICATIONS: Neck trauma, midline tenderness TECHNIQUE: Noncontrast 3 mm thick sections acquired from the skull base to the T4 level. Sagittal and coronal r eformats were then constructed. For radiation dose reduction, the following was used: automated exp osure control, adjustment of mA and/or kV according to patient size. COMPARISON: 05/10/2020. Correlation is also made with the accompanying CT imaging, 08/31/2020. FINDINGS: Image quality: Excellent. Bones: No fractures or dislocations. Visualized superior ribs are intact. Degenerative changes are seen, which are worst inferiorly. Soft tissues: Prevertebral soft tissues are normal in thickness. No paravertebral hematomas. No ap ical pneumothoraces. IMPRESSION: No cervical spine fracture can be seen. Cervical spine degenerative changes are seen, which are worst inferiorly. Note: No significant discrepancy from the preliminary report. Reviewed by: Darryl Alvarez MD on 09/01/2020 8:12 AM NATHAN Approved by: Darryl Alvarez MD on 09/01/2020 8:12 AM ORLONG Station ID: [id number]
--- NOTE | 2020-09-01 10:17 | XRAY Report ---
PROCEDURE: Shoulder 2 View BILAT INDICATIONS: BL shoulder pain s/p fall down 12 stairs +etoh TECHNIQUE: 2 views of each shoulder were acquired. COMPARISON: Correlation is made with the accompanying CTs, 08/23/2020. FINDINGS: Bones: On one image, there is a mild displaced fracture of the left distal clavicle. No additional f ractures or dislocations. No suspicious bony lesions. Visualized ribs appear intact. Soft tissues: No suspicious soft tissue calcifications. IMPRESSION: Left distal clavicle fracture. Note: This case (including difference between this final report and the preliminary report) discussed by telephone with nurse Alberts at 9:15 AM [place] time on 09/01/2020. Reviewed by: Darryl Alvarez MD on 09/01/2020 9:16 AM NATHAN Approved by: Darryl Alvarez MD on 09/01/2020 9:16 AM NATHAN Station ID: [id number]
--- NOTE | 2020-09-01 16:35 | Discharge Plan ---
Discharge Plan Problem Reviewed?: Yes Disposition: Home, Self Care Condition: Fair Prescriptions: methocarbamoL [Robaxin] 500 mg PO Q6HR PRN #60 tablet PRN Reason: Spasms Multivitamin/Iron/Folic Acid [Centrum Adults Tablet] 1 each PO DAILY #1 tablet Hydrocodone/Acetaminophen [Hydrocodone-Acetamin 5-300 mg] 1 - 2 each PO Q6H #60 tablet Diet: Regular Activity Restrictions: Activity as Tolerated Driving Restrictions: Yes (no driving within 6 hours of oxycodone or robaxin) Weight Bearing: Full Weight Instruction Topics: ED Fx Comp Vertebral Health Concerns: You were celebrating getting a new job and you drink a little bit too much. With your intoxication you lost her balance and fell down at home. You had ac [place] back pain. In the emergency room we found her to have a small fracture where the bone was compressed in the middle of your spine. We label spine bones. The top of your neck is cervical. Your chest is call thoracic. And your lower spine is called lumbar. You have fractured thoracic bone #11. Plan of Treatment: 1. We gave you vitamins associated with overuse of alcohol. Mainly it is thiamine and folic acid. We suggest you take a multivitamin every day and an extra thiamine tablet [id number] on a daily basis. 2. We suggest that you refrain from drinking any alcohol while you are on pain medicines. And when you do drink do not drink more than 1 a day. 3. Pain medicine in the form of oxycodone has been prescribed. You have also been prescribed a muscle relaxant called Robaxin. Oxycodone will be 1 pill every 6 hours as needed. You can take one Tylenol and one Motrin with that oxycodone every 6 hours. You do not have to take the medicine on a regular schedule, but you can take it as needed for your pain. 4. I did ask if there was anyone at home to help you and you said that you were a private person and that your neighbors work. Please be careful. If you find that you cannot be home by yourself, and it is unsafe for you to be home, please come back to the emergency room and we can help you find placement. Care Goals: Over the next few weeks your pain will get gradually better and better and you will be able to move around more freely. Assessment: Patient understands care and treatment plan. Her care goal is to remain at home. She declines help with in-home services, but would like help getting home with a taxi. No Smoking: If you smoke, Please STOP! Call for help. Follow-up with: ANGIE LUDWIG PA-C [Primary Care Provider] -
--- NOTE | 2020-09-01 16:37 | DISCHARGE SUMMARY ---
Discharge Summary Admit Date: 08/31/20 Discharge Date: 09/01/20 Discharging Provider: Jenny Sharpe MD Primary Care Provider: DARYN Francis Code Status: Attempt Resuscitation Condition at Discharge: Fair Discharge Disposition: 01 Home, Self Care - DIAGNOSES Discharge Diagnoses with Status of Each Condition: 1. T11 vertebral fracture 2. Fall downstairs 3. Acute alcohol intoxication 4. Hypertension 5. Left clavicle fracture - HPI History of Present Illness: This is a 60-year-old female with a past medical history significant for hypertension and depression who presents today after having a fall at home. She states she is walking up the stairs at home when she slipped and fell from about the 6 step. She denies any loss of consciousness but she cannot recall if she hit her head or not. She states is is not the first time she has fallen down her steps. She denies any chest pain or dyspnea, palpitations. She does complain of lower to mid back pain. Denies any headache, change in vision, nu mbness or tingling. Denies any difficulty urinating, dysuria, urgency, hematuria. She states her pain is quite significant initially but this is improved after receiving IV morphine and is now quite minimal. She does complain of some neck pain as well but is worse with movement. She states she w as drinking alcohol last night and believes she had at least 2 drinks of vodka with Powerade. She denies any daily alcohol use and reports her last drink prior to this was about 1 week ago. She was celebrating a new job she will be starting. In the emergency department, she underwent a CT of the cervical spine which was unremarkable. CT chest with contrast revealed an acute anterior coronary and superior endplate fracture at T11. This finding was discussed with [facility] who felt that surgical intervention was not warranted at this time. Given the patient's ongoing pain, medicine was consulted for admission. 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 Abdomen pelvis CT with fractures of the superior endplates of T10 and T11. No acute posttraumatic solid organ injury can be seen. Small hiatal hernia incidentally. 2. Chest CT with acute fractures of the superior endplates of T10 and T8 11 without posterior displacement of fracture fragments. Small incidental hiatal hernia. 3. Head CT no intracranial hemorrhage seen. No significant intracranial abnormality. 4. Cervical spine CT with no cervical spine fracture. Cervical spine degenerative changes seen. Worsen family. 5. Shoulder x-ray was initially that of no fractures or acute injuries. Final report came back as left distal clavicle fracture. Radiology spoke to nurse, and nurse let patient know the final report. - HOSPITAL COURSE Hospital Course: The patient was in observation for about 8 hours. She had only required 1 dose of IV morphine in the emergency room and after that her pain was controlled. For the rest of her stay she needed minimal opiates. When I saw her in the morning she was adamant that she wanted to go home. She lives alone, and her front steps are problematic and that she says that they have been ripped out and now it is a "log" that she steps on. Nevertheless she says that she needs a taxi home, she can get in her own home. I explained to her that she has significant contusions, it may be going to feel worse tomorrow, and her T-spine compression fractures could leave her relatively immobile for at least a few days. That did not sway her or change her mind and she again asked to go home. She was in notified of the left clavicle fracture. At discharge she was alert and oriented to person place and time. Temperature 37 1. Pulse 83. Blood pressure 137/89. Respirations 18 and 95% on room air. Slightly nasal tone of voice. Slight postnasal drip and clearing of throat. Neck is supple without goiter. Lungs were clear to auscultation and percussion. Both shoulders hurt with range of motion especially the left 1. Chest wall hurt over the left rib cage. This was with palpation and deep breathing. She had a regular rate and rhythm. Lungs were clear. Abdomen was soft but also a over the lift flank and left upper abdomen that she attributes to her fall. Abdomen itself was soft, nontender, normal bowel sounds. Extremities without edema. She was alert and oriented to person place and time. Did not have diaphoresis, tremulousness, or focal neurological deficit. She had no ataxia. I have asked her to follow-up with her primary care provider Stacey Justin. I have asked her not to refrain from drinking. She cannot mix her alcohol with her pain medicines. - ALLERGIES Allergies/Adverse Reactions: Allergies Allergy/AdvReac Type Severity Reaction Status Date / Time Sulfa (Sulfonamide Allergy Unknown Unknown Verified 08/31/20 22:27 Antibiotics) - MEDICATIONS Home Medications: Ambulatory Orders Medication Instructions Recorded Confirmed lisinopriL [Lisinopril] 10 mg PO DAILY 09/22/17 08/31/20 Metoprolol Tartrate [Lopressor] 50 mg PO BID 09/23/17 08/31/20 Venlafaxine ER [Effexor ER] 150 mg PO DAILY 05/10/20 08/31/20 Acetaminophen [Tylenol] 1,000 mg PO TID tablet 09/01/20 Hydrocodone/Acetaminophen 1 - 2 each PO Q6H #60 tablet 09/01/20 [Hydrocodone-Acetamin 5-300 mg] Multivitamin/Iron/Folic Acid 1 each PO DAILY #1 tablet 09/01/20 [Centrum Adults Tablet] Thiamine [Vitamin B-1] 100 mg PO DAILY tablet 09/01/20 methocarbamoL [Robaxin] 500 mg PO Q6HR PRN #60 tablet 09/01/20 - LABS Result Diagrams: 09/01/20 07:19 09/01/20 07:19
== END 2020-09-01 11:54 | disposition home or self-care (01) ==
LOC: EDUNIT# → ED 22:15 → SUPCPDRO 22:15 → MS3 09-01 01:48
PROVIDERS: ADMIT Internal Medicine; ATTEND Specialist
DX: S22.089A Unspecified fracture of T11-T12 vertebra, initial encounter for closed fracture (principal); S42.032A Displaced fracture of lateral end of left clavicle, initial encounter for closed fracture; W10.8XXA Fall (on) (from) other stairs and steps, initial encounter; Z91.81 History of falling; Y92.008 Other place in unspecified non-institutional (private) residence as the place of occurrence of the external cause; F10.920 Alcohol use, unspecified with intoxication, uncomplicated; Y90.8 Blood alcohol level of 240 mg/100 ml or more; I10 Essential (primary) hypertension; Z20.822 Contact with and (suspected) exposure to COVID-19
CPT/HCPCS: 0202U; 36415; 51702; 70450; 71260; 72125; 73030; 74177; 80048; 80053; 80306; 80320; 83690; 85025; 85610; 85730; 96372; 96374; 96375; 96376; 99285; A9270; G0378; J1650; Q9967

== ENCOUNTER 2020-09-17 13:00 | Outpatient (CLI) | payer MEDICAID ==
[~2020-09-17 13:00] MED LIST: BUFFERED LIDOCAINE 10 ML SYRINGE ONE
[2020-09-17] MEDS ORDERED: LIDOCAINE MPF 1%-EPI 1:200000 30 ML VIAL ONE (13:20)
[2020-09-17] MEDS ORDERED: BUFFERED LIDOCAINE 10 ML SYRINGE ONE (13:20)
[2020-09-17] MEDS ORDERED: BUFFERED LIDOCAINE 10 ML SYRINGE IU ONE (15:56)
[2020-09-17] MEDS ORDERED: LIDOCAINE MPF 1%-EPI 1:200000 30 ML VIAL SUBQ ONE (16:00)
--- NOTE | 2020-09-20 07:56 | Mammography Report ---
UNILATERAL LEFT DIGITAL DIAGNOSTIC MAMMOGRAM 3D/2D: 09/17/2020 CLINICAL: Post left breast ultrasound biopsy, clip placment imaging. Comparison is made to exams dated: 08/16/2020 ultrasound, 08/16/2020 mammogram, 07/04/2020 mammogram, mammogram, and 05/08/2009 mammogram - [facility]. There are scattered fibro glandular elements in left breast. There is a marker clip in the appropriate position in the left breast 2 o'clock seen on the craniocau ayanna view only. This marker clip placement is at the biopsy site. IMPRESSION: POST PROCEDURE MAMMOGRAM FOR MARKER PLACEMENT There was a successful marker clip placement in the left breast 2 o'clock anterior depth seen on the craniocaudal view only. This exam was interpreted at Station ID: [id number]. NOTE: For mammograms, a report in lay terms will be sent to the patient. Approximately 15% of breast malignancies will not be visualized mammographically. In the management of a palpable breast mass, a negative mammogram must not discourage biopsy of a clinically suspicious lesion. Electronically Signed By: Shirley Zee M.D. [facility]/:09/19/2020 17:29:38 ACR BI-RADS Category Post-procedure mammogram for marker placement PARENCHYMAL PATTERN: (A) - The breast(s) demonstrate(s) scattered fibroglandular densities. BI-RADS CATEGORY: () - Unspecified - other recall n/a LATERALITY: (B)
--- NOTE | 2020-09-20 08:42 | Ultrasound Report ---
ULTRASOUND GUIDED BIOPSY LEFT BREAST USING VACUUM DEVICE WITH MARKING DEVICE INSERTED AND POST MAMMOG RAPHIC IMAGIN09/17/2020 CLINICAL: Left breast mass. PATIENT CONSENT: Risks (minor bleeding, infection, vasovagal reaction and repeat procedure), benefits and alternatives were explained to the patient and written informed consent was obtained. Correlation is made to exams dated: 09/17/2020 mammogram, 08/16/2020 ultrasound, 08/16/2020 mammogram, 07/04/2020 mammogram, 09/20/2013 mammogram, and 05/08/2009 mammogram - [facility]. An ultrasound guided biopsy using real-time ultrasound was performed for the mass located in the left breast at 2 o'clock posterior depth. The skin was prepped in the usual manner. Topical and local a nesthetic was administered to the access site. A skin odalys was made in the breast. The abnormality was approached from the lateral aspect. A biopsy needle was placed adjacent to the abnormality under ultrasound guidance. Once the needle was documented to be in the correct location, a specimen was o btained using the Mammotome biopsy system. A titanium clip was inserted into the biopsy cavity. A s terile dressing was applied to the access site. Post procedure mammographic imaging was obtained. T he specimen was sent to the laboratory for pathological analysis. IMPRESSION: ULTRASOUND GUIDED BIOPSY MALIGNANT Ultrasound guided biopsy of the mass in the left breast at 2 o'clock posterior depth was successful. Pathology indicates malignant invasive ductal carcinoma (ID). Pathology results are concordant with imaging findings. A surgical/oncologic consultation is recommended. This exam was interpreted at Station ID: [id number]. Shirley Smith M.D. [facility]/:09/20/2020 08:29:19 BI-RADS CATEGORY: () - Unspecified - other recall n/a LATERALITY: (B)
== END 2020-09-17 13:01 | disposition home or self-care (01) ==
LOC: DI 13:00
PROVIDERS: ATTEND Physician Assistant
DX: C50.412 Malignant neoplasm of upper-outer quadrant of left female breast (principal); Z17.0 Estrogen receptor positive status [ER+]; R74.8 Abnormal levels of other serum enzymes; R89.9 Unspecified abnormal finding in specimens from other organs, systems and tissues
CPT/HCPCS: 19083; 81256

== ENCOUNTER 2020-09-17 15:46 | Outpatient (CLI) | payer MEDICAID | END 2020-09-17 15:47 | disposition home or self-care (01) | LOC: LAB.S 15:46 | PROVIDERS: ATTEND Physician Assistant | DX: R74.8 Abnormal levels of other serum enzymes (principal); R89.9 Unspecified abnormal finding in specimens from other organs, systems and tissues | CPT/HCPCS: 81256 ==

== ENCOUNTER 2020-12-17 12:52 | Outpatient (CLI) | payer MEDICAID ==
--- NOTE | 2020-12-25 13:13 | Ultrasound Report ---
LIMITED ULTRASOUND OF LEFT BREAST: 12/17/2020 CLINICAL: Left breast mass biopsy. Comparison is made to exams dated: 10/25/2020 breast MRI - [facility], 09/17/2020 ultrasound biop sy, 09/17/2020 mammogram, 08/16/2020 ultrasound, 08/16/2020 mammogram, and 07/04/2020 mammogram - [facility]. Ultrasound of was performed on the area of interest. The left breast was scanned at the 8-9 o'clock, as well as 5-6 o'clock, corresponding to areas identified on MRI 10/25/20 for biopsy. No abnormalities in either of these locations were identified. The clip of the previous biopsy at 2 o'clock was identiified. IMPRESSION: KNOWN BIOPSY PROVEN MALIGNANCY There is no sonographic correlation to masses identified on MRI exam. Biopsies cancelled. The above was discussed with Dr. Jerilyn Strong on 12/17/20. This exam was interpreted at Station ID: [id number]. Electronically Signed By: Shirley Zee M.D. [facility]/:12/25/2020 13:05:17 Ultrasound BI-RADS: 6 Known biopsy proven malignancy BI-RADS CATEGORY: (6) - 6 Unspecified - other recall n/a LATERALITY: (B)
== END 2020-12-17 12:53 | disposition home or self-care (01) ==
LOC: DI 12:52
PROVIDERS: ATTEND Surgery
DX: C50.912 Malignant neoplasm of unspecified site of left female breast (principal); R92.8 Other abnormal and inconclusive findings on diagnostic imaging of breast

== ENCOUNTER 2021-01-17 17:46 | Outpatient (CLI) | payer MEDICAID ==
[2021-01-17 20:12] LABS: T4 (THYROXINE) 6.71 ug/dL (6.09-12.23)
[2021-01-17 20:16] LABS: THYROID STIMULATING HORMONE 2.31 uIU/mL (0.34-5.60)
== END 2021-01-17 17:47 | disposition home or self-care (01) ==
LOC: LAB.S 17:46
PROVIDERS: ATTEND Nurse Practitioner
DX: E03.9 Hypothyroidism, unspecified (principal)
CPT/HCPCS: 36415; 84436; 84443; 84480

== ENCOUNTER 2021-03-11 07:47 | Day surgery (SDC) | payer MEDICAID ==
[2021-03-11] MEDS ORDERED: LACTATED RINGERS 1,000 ML IV ONE ×2 (08:26→14:24)
[2021-03-11] MEDS ORDERED: BUFFERED LIDOCAINE 10 ML SYRINGE ONE (09:21)
[2021-03-11] MEDS ORDERED: LIDOCAINE 1%-EPI 1:100000 20 ML MDV ONE (09:21)
[2021-03-11] MEDS ORDERED: CEFAZOLIN SODIUM IN 0.9 % NACL 2 GM/100 ML BAG IV ONE (10:40)
--- NOTE | 2021-03-11 11:08 | ANESTHESIA ---
Pre-Anesthesia VS, & Labs - Diagnosis L breast cancer - Procedure L breast lumpectomy, SN biopsy Vital Signs: Temp Pulse Resp BP Pulse Ox 36.6 C 89 16 117/66 98 03/11/21 08:12 03/11/21 08:12 03/11/21 08:12 03/11/21 08:12 03/11/21 08:12 Height: 5 ft 5 in Weight (kg): 88 kg Body Mass Index: 32.3 BMI Classification: Obese - NPO >8 hours - Is Patient ?: No - Lab Results Lab results reviewed: Yes Home Medications and Allergies Home Medications: Ambulatory Orders traZODone [Desyrel] 50 mg PO HS PRN 03/07/21 DULoxetine [Cymbalta] 1 cap PO DAILY 03/08/21 Metoprolol Tartrate [Lopressor] 50 mg PO BID 09/23/17 Losartan/Hydrochlorothiazide [Hyzaar 50-12.5 Tablet] 1 each PO DAILY 10/18/20 traZODone [Desyrel] 50 mg PO HS PRN 03/07/21 DULoxetine [Cymbalta] 1 cap PO DAILY 03/08/21 Allergies/Adverse Reactions: Allergies Allergy/AdvReac Type Severity Reaction Status Date / Time Sulfa (Sulfonamide Allergy Unknown Unknown Verified 08/31/20 22:27 Antibiotics) Anes History & Medical History - Anesthetic History Anesthesia Complications: reports: No previous complications Family history of Anesthesia Complications: Denies Family history of Malignant Hyperthermia: Denies - Medical History Cardiovascular: reports: Hypertension Pulmonary: reports: None Gastrointestinal: reports: GERD Urinary: reports: None Neuro: reports: Tremors Musculoskeletal: reports: Osteoarthritis, Chronic back pain Endocrine/Autoimmune: reports: None Blood Disorders: reports: None Skin: reports: None Smoking Status: Never smoker History of Cancer?: Yes (L breast) - Surgical History Orthopedic: reports: Other Exam General: Alert, Oriented x3, Cooperative Dental: WNL Mouth Openin Fingerbreadth Neck Mobility: Normal Mallampati classification: II Thyromental Distance: 4-6 cm Respiratory: Lungs clear, Normal breath sounds, No respiratory distress Cardiovascular: Regular rate Neurological: Normal speech Mental/Cognitive Status: Alert/Oriented X3, Normal for patient Cognitive Status: Within normal limits Plan Anesthesia Type: General Consent for Procedure(s) Verified and Reviewed: Yes Code Status: Attempt Resuscitation ASA classification: 3-Severe systemic disease Is this case an emergency?: No
[2021-03-11] MEDS ORDERED: ATROPINE ABBOJECT 1 MG/10 ML SYRINGE IVP PRN (11:30)
[2021-03-11] MEDS ORDERED: ePHEDrine 50 MG/ML VIAL IVP PRN (11:30)
[2021-03-11] MEDS ORDERED: HYDROmorphone 0.5 MG/0.5 ML SYRINGE IVP PRN (11:30)
[2021-03-11] MEDS ORDERED: NALOXONE 0.4 MG/ML VIAL IVP PRN (11:30)
[2021-03-11] MEDS ORDERED: ONDANSETRON 4 MG/2 ML VIAL IVP PRN ×2 (11:30→14:41)
[2021-03-11] MEDS ORDERED: METOCLOPRAMIDE 10 MG/2 ML VIAL IVP PRN (11:30)
[2021-03-11] MEDS ORDERED: fentaNYL 100 MCG/2 ML VIAL IVP PRN (11:30)
[2021-03-11] MEDS ORDERED: MORPHINE 2 MG/ML CARPUJECT IVP PRN (11:30)
[2021-03-11] MEDS ORDERED: LACTATED RINGERS 1,000 ML IV SCH (12:00)
[2021-03-11] MEDS ORDERED: LIDOCAINE MPF 2%-EPI 1:200000 20 ML VIAL ONE (12:08)
[2021-03-11] MEDS ORDERED: METHYLENE BLUE 0.5% 50 MG/10 ML AMPULE ONE (12:08)
[2021-03-11] MEDS ORDERED: BUPIVACAINE 0.5% PF 10 ML VIAL ONE (12:09)
[2021-03-11] MEDS ORDERED: MIDAZOLAM 2 MG/2 ML VIAL ONE (12:11)
[2021-03-11] MEDS ORDERED: fentaNYL 100 MCG/2 ML VIAL ONE ×2 (12:11→13:22)
[2021-03-11] MEDS ORDERED: PROPOFOL 200 MG/20 ML VIAL IVP ONE ×2 (12:11→13:58)
[2021-03-11] MEDS ORDERED: LIDOCAINE-MPF 2% 5 ML VIAL ONE (12:11)
[2021-03-11] MEDS ORDERED: DEXAMETHASONE 4 MG/ML VIAL ONE (12:59)
[2021-03-11] MEDS ORDERED: ONDANSETRON 4 MG/2 ML VIAL ONE (12:59)
[2021-03-11] MEDS ORDERED: SODIUM CHLORIDE 0.9% 10 ML VIAL IVP ONE (13:01)
[2021-03-11] MEDS ORDERED: ePHEDrine 50 MG/ML VIAL IVP ONE (13:01)
[2021-03-11] MEDS ORDERED: BUPIVACAINE 0.5% PF 10 ML VIAL SUBQ ONE (13:16)
[2021-03-11] MEDS ORDERED: METHYLENE BLUE 0.5% 50 MG/10 ML AMPULE IR ONE (13:35)
[2021-03-11] MEDS ORDERED: LIDOCAINE MPF 2%-EPI 1:200000 20 ML VIAL SUBQ ONE (13:35)
[2021-03-11] MEDS ORDERED: PHENYLEPHRINE 10 MG/ML VIAL ONE (13:41)
--- NOTE | 2021-03-11 14:34 | OPERATIVE REPORT ---
Operative Report - General Procedure Date: 03/11/21 Planned Procedure: Left breast lumpectomy and sentinel node biopsy after needle localization and mapping Pre-Op Diagnosis: Left breast cancer Procedure Performed: Left breast lumpectomy and sentinel node biopsy Post Op Diagnosis: Same - Procedure Note Primary Surgeon: Ligia Anesthesia Provider: Yvan Anesthesia Technique: General ET tube, Local Pathology: 1. Gage node 2. Left breast specimen 3. Additional medial margin 4. Re-excision of entire cavity Estimated Blood Loss (mL): 25 Findings: A single sentinel node with deep blue color Wire and mass identified but the clip was not definitely identified Complications: None apparent - Other Other Information/Narrative: After obtaining informed consent, the patient was brought to the operating room and placed in the supine position on the operating table. Following successful induction of general endotracheal anesthesia, appropriate padding of all bony prominences, and placement of appropriate monitors, the left nipple was cleaned with alcohol solution and 2 mL of methylene blue was injected in the subcutaneous tissue of the nipple. The breast was massaged for 5 minutes. The left breast was then prepped and draped in the standard surgical fashion. A timeout was held per scope protocol. All elements of the surgical safety checklist were followed before, during, and after the procedure. We began the procedure with a sentinel node dissection. Following infiltration with local anesthetic to create a field block, an incision was created in a natural skin fold in the left axilla and carried through the skin and subcutaneous tissue. The axillary fat pad was entered directly. Gentle dissection was then undertaken and we immediately encountered a deep blue node at level 1 in the axillary node packet. This node was gently dissected free from surrounding structures. All lymphatics and vasculature were addressed with hemoclips prior to division. The node was liberated into the field and passed from the table as a sentinel node specimen. The axilla was reexamined. No other evidence of blue dye was appreciated. The axillary incision was then marylin sed in 2 layers with Vicryl and Monocryl sutures. We turned our attention to the left breast mass. The area over the mass and in the periareolar region was infiltrated with a mixture of local anesthetics to cry to field block. A curvilinear incision was then created to include the tissue through which the wire protruded.The wire and surrounding tissue were removed to a depth of approximately 2-1/2 cm which was the measured length of the wire plus half centimeter.It was removed in a single piece, marked for orientation, and submitted for specimen x-ray.The radiologist called back into the room reporting that she could see the wire in the lesion but could not see the clip. An additional medial margin was retrieved sharply, marked for orientation, and submitted. Two additional clips were identified in this area from prior biopsies. Again, the target clip was not identified. The radiologist felt that we had been very very close to the clip at the time of the original biopsy. I elected to close the cavity and excised the entire thing with 1/2 cm margin 1 more time this was done sharply and sent for specimen x-ray. As the entire quadrant had been effectively treated, we elected to end this portion of the procedure. The specimen was submitted for x-ray but no additional attempts were made to identify the clip. The wound was checked for hemostasis. It was irrigated again with warm water. The biopsy cavity was then marked for orientation with clips peripherally and centrally.The wound was then closed in 2 layers with Vicryl and Monocryl sutures. All sponge, needle, and instrument counts were correct at the conclusion of the case. The patient was let awakened anesthesia without difficulty and taken to the postanesthesia care unit in good condition.
[2021-03-11] MEDS ORDERED: IBUPROFEN 600 MG TABLET PO PRN (14:41)
[2021-03-11] MEDS ORDERED: ACETAMINOPHEN 325 MG TABLET PO PRN (14:41)
[2021-03-11] MEDS ORDERED: oxyCODONE 5 MG TABLET PO PRN (14:41)
--- NOTE | 2021-03-11 14:59 | ANESTHESIA POST OP EVALUATION ---
Anesthesia Post Eval - Post Anesthesia Eval Vitals: Last Vital Signs Temp 36.9 C 03/11/21 14:48 Pulse 65 03/11/21 14:48 Resp 16 03/11/21 14:48 BP 130/75 03/11/21 14:48 Pulse Ox 100 03/11/21 14:48 CV Function Including HR & BP: Stable Pain Control: Satisfactory Nausea & Vomiting: Negative Mental Status: Baseline Respiratory Status: Airway Patent Hydration Status: Satisfactory Anesthesia Complications: None
[2021-03-11 15:05] VITALS: BP 130/66
[2021-03-11] MEDS ORDERED: IBUPROFEN 600 MG TABLET PO ONE (15:05)
--- NOTE | 2021-03-12 06:39 | Mammography Report ---
DIGITAL MAMMOGRAPHY GUIDED WIRE LOCALIZATION LEFT BREAST WITH POST DIGITAL MAMMOGRAPHIC IMAGIN03/11 CLINICAL: Post wire placement. Correlation is made to exams dated: 12/17/2020 ultrasound - [facility], 10/25/2020 b reast MRI - [facility], 09/17/2020 ultrasound biopsy, 09/17/2020 mammogram, 08/16/2020 ultrasound, and 08/16/2020 mammogram - [facility]. A wire localization using digital mammography guidance was performed for the indistinct lobulated mas s located in the left breast at 2 o'clock middle depth. This was described on the previous mammograp hy, ultrasound, and MRI reports. The skin was prepped in the usual manner. Topical and local anesth etic was administered to the access site. A small incision was made in the breast. The localization was approached from the craniocaudal aspect. A J-hook wire was inserted into the targeted area unde r digital mammography guidance. A sterile dressing was applied to the access site. Post placement d igital mammographic imaging was obtained. IMPRESSION: WIRE LOCALIZATION Wire localization for the mass in the left breast at 2 o'clock middle depth was successful. This exam was interpreted at Station ID: [id number]. Shirley Zee M.D. [facility]/:03/11/2021 16:46:02 BI-RADS CATEGORY: () - Unspecified - other recall n/a LATERALITY: (B)
--- NOTE | 2021-03-12 06:39 | Mammography Report ---
SPECIMEN: 03/11/2021 CLINICAL: Left breast specimen. Correlation is made to exams dated: 03/11/2021 localization, 12/17/2020 ultrasound - [facility], 10/25/2020 breast MRI [facility], 09/17/2020 ultrasound biopsy, 09/17/2020 mammogram , and 08/16/2020 ultrasound - [facility]. Multiple specimens were obtained. Wire was present in the initial speciman. Additoinal specimens con tained breast clips However, the biopsy clips at 2 oclock which was localized was not identified in the acquired speciman s. IMPRESSION: SPECIMEN Biopsy clip at left 2 oclock not identified. This exam was interpreted at Station ID: [id number]. Shirley Zee M.D. [facility]/:03/11/2021 16:51:00 BI-RADS CATEGORY: () - Unspecified - other recall n/a LATERALITY: (B)
== END 2021-03-11 07:48 | disposition home or self-care (01) ==
LOC: SDS 07:47
PROVIDERS: ATTEND Surgery
PROC: 07B60ZX Excision of Left Axillary Lymphatic, Open Approach, Diagnostic (ICD-10-PCS; 2021-03-11)
PROC: 0HBU0ZZ Excision of Left Breast, Open Approach (ICD-10-PCS; principal; 2021-03-11 11:00)
DX: C50.912 Malignant neoplasm of unspecified site of left female breast (principal); E66.9 Obesity, unspecified; Z68.32 Body mass index [BMI] 32.0-32.9, adult
CPT/HCPCS: 19281; 19301; 38525; 38900; 76098; A9270; J0690; J7120

== ENCOUNTER 2021-04-01 15:40 | Emergency (ER) | payer MEDICAID ==
--- NOTE | 2021-04-01 16:17 | ED Physician Documentation ---
History of Present Illness - Stated complaint Stated Complaint: POST-OP BLEEDING - Chief complaint Chief Complaint: General - History obtained from History obtained from: Patient - History of Present Illness Timing: How many days ago (3) Pain level max: 3 Pain level now: 2 - Additonal information Additional information: Patient is a 60-year-old female who presents to the emergency department complaining that she had surgery on her left breast about 3 weeks ago. 3 days ago she noticed bleeding from the surgical site. She states it has continued to ooze. She states that she contacted the surgical office today who referred her here for evaluation. No fevers. No chills. No nausea or vomiting. Nothing makes it better or worse. Review of Systems Constitutional: denies: Fever, Chills Respiratory: denies: Cough GI: denies: Nausea, Vomiting, Diarrhea : denies: Dysuria Skin: denies: Rash Musculoskeletal: denies: Neck pain, Back pain Neurologic: denies: Headache PD PAST MEDICAL HISTORY - Past Medical History Cardiovascular: Hypertension Respiratory: None Neuro: Tremors Endocrine/Autoimmune: None GI: GERD COOK JELLY: None : None HEENT: None Psych: Depression Musculoskeletal: Osteoarthritis, Chronic back pain Derm: None - Past Surgical History Past Surgical History: Yes Ortho: Other - Present Medications Home Medications: Ambulatory Orders Medication Instructions Recorded Confirmed Metoprolol Tartrate [Lopressor] 50 mg PO BID 09/23/17 03/11/21 Losartan/Hydrochlorothiazide 1 each PO DAILY 10/18/20 03/11/21 [Hyzaar 50-12.5 Tablet] traZODone [Desyrel] 50 mg PO HS PRN 03/07/21 03/11/21 DULoxetine [Cymbalta] 1 cap PO DAILY 03/08/21 03/08/21 Ondansetron Odt [Zofran Odt] 4 mg TL Q6H PRN #10 tablet 03/11/21 oxyCODONE [Roxicodone] 5 mg PO Q4-6H PRN #20 tablet 03/11/21 traMADol [Ultram] 50 mg PO Q4-6H PRN #20 tablet 03/12/21 - Allergies Allergies/Adverse Reactions: Allergies Allergy/AdvReac Type Severity Reaction Status Date / Time Sulfa (Sulfonamide Allergy Unknown Unknown Verified 04/01/21 15:57 Antibiotics) - Social History Does the pt smoke?: No Smoking Status: Never smoker Does the pt drink ETOH?: Yes Does the pt have substance abuse?: No - Immunizations Immunizations are current?: Yes - POLST Patient has POLST: No POLST Status: Full Code PD ED PE NORMAL - Vitals Vital signs reviewed: Yes - General General: Alert and oriented X 3, No acute distress - HEENT HEENT: Moist mucous membranes - Neck Neck: Supple, no meningeal sign - Cardiac Cardiac: RRR - Respiratory Respiratory: No respiratory distress, Clear bilaterally - Derm Derm: Warm and dry - Extremities Extremities: Other (L breast - mild bruising, small dehiscence with dark blood oozing from site. ) - Neuro Neuro: Alert and oriented X 3 Results - Vitals Vitals: Vital Signs - 24 hr 04/01/21 04/01/21 15:57 17:06 Temperature 37.1 C Heart Rate 62 67 Respiratory 18 23 Rate Blood Pressure 124/72 126/75 O2 Saturation 99 96 Oxygen O2 Source Room air PD MEDICAL DECISION MAKING - ED course Complexity details: considered differential, d/w patient, d/w apprenticeship consultant ED course: Dr. Strong came and saw the patient at bedside. She performed an aspiration and bandaged the area. She will follow up in the office with the patient. This document was made in part using voice recognition software. While efforts are made to proofread this document, sound alike and grammatical errors may occur. Departure - Departure Disposition: 01 Home, Self Care Clinical Impression: Wound dehiscence Postoperative hematoma Qualifiers: Surgical complication system/body Area: skin Procedure type: non-dermatologic Qualified Code(s): L76.32 - Postprocedural hematoma of skin and subcutaneous tissue following other procedure Condition: Good Instructions: ED Wound Check Post Op Bleeding Follow-Up: Tushar Strong MD [Provider Admit Priv/Credential] - Comments: Follow up with Dr. Strong as directed by her today. Discharge Date/Time: 04/01/21 17:13
[2021-04-01 17:07] VITALS: BP 126/75
--- NOTE | 2021-04-01 18:11 | CONSULTATION NOTE ---
Referring Provider Name of Referring Provider:: Dr. Rene Santiago Consult Date: 04/01/21 Chief Complaint - Chief Complaint Chief Complaint: Bleeding from lumpectomy incision History of Present Illness - Admitted From Admitted From:: home - History Obtained From Exam Limitations: None - History of Present Illness HPI Comment/Other: 60 year old lady well known to me who underwent a left breast lumpectomy 21 days ago. She has a follow up appointment in the surgery clinic on but called to report she has some bleeding from the incision site and was told to present to the ED. She was seen and examined by Dr. Santiago and found to have a small wound dehisence. I was consulted for management of this issue. She has not had any fever at home. She reports her pain is well controlled and she is planning to return to work tomorrow and wanted to be sure all was well. History - Past Medical History Cardiovascular: reports: Hypertension Respiratory: reports: None Neuro: reports: Tremors Endocrine/Autoimmune: reports: None GI: reports: GERD OPERATIONS SCHEDULER: reports: None : reports: None HEENT: reports: None Psych: reports: Depression Musculoskeletal: reports: Osteoarthritis, Chronic back pain Derm: reports: None MRSA Hx?: No - Past Surgical History Ortho: reports: Other - Family & Social History Family History: Mother: (Father in a motor vehicle accident), Cancer (Mother of lung cancer), Father: , Other family: Hyperlipidemia, Hypertension, [place] Family History Comment/Other: She reports her mother from metastatic lung cancer. Denies any other family history. Living Situation: Alone Social History Notes: She lives at home alone. She denies daily alcohol use. Denies a history of smoking. 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 - POLST Patient has POLST: No POLST Status: Full Code Meds/Allgy - Home Medications Home Medications: Ambulatory Orders Medication Instructions Recorded Confirmed Metoprolol Tartrate [Lopressor] 50 mg PO BID 09/23/17 03/11/21 Losartan/Hydrochlorothiazide 1 each PO DAILY 10/18/20 03/11/21 [Hyzaar 50-12.5 Tablet] traZODone [Desyrel] 50 mg PO HS PRN 03/07/21 03/11/21 DULoxetine [Cymbalta] 1 cap PO DAILY 03/08/21 03/08/21 Ondansetron Odt [Zofran Odt] 4 mg TL Q6H PRN #10 tablet 03/11/21 oxyCODONE [Roxicodone] 5 mg PO Q4-6H PRN #20 tablet 03/11/21 traMADol [Ultram] 50 mg PO Q4-6H PRN #20 tablet 03/12/21 - Allergies Allergies/Adverse Reactions: Allergies Allergy/AdvReac Type Severity Reaction Status Date / Time Sulfa (Sulfonamide Allergy Unknown Unknown Verified 04/01/21 15:57 Antibiotics) Review of Systems - All Other Systems All Other Systems: reports: Reviewed and negative Exam - Vital Signs Reviewed Vital Signs: Yes Vital Signs: Vital Signs x48h Temp Pulse Resp BP Pulse Ox 04/01/21 17:06 67 23 126/75 96 04/01/21 15:57 37.1 C 62 18 124/72 99 - Physical Exam General Appearance: positive: No acute distress, Alert Eyes Bilateral: positive: Normal inspection, PERRL, EOMI ENT: positive: ENT inspection nml Neck: positive: Nml inspection Respiratory: positive: No respiratory distress Cardiovascular: positive: Regular rate & rhythm Abdomen: positive: Nml bowel sounds Skin: positive: Other (Left breast with bruising to the upper outer quadrant. 1/2 cm opening at the distal aspect of the incision. Serosanguinous drainage without obvious clot or erythema) Conclusion and Plan - Diagnosis Diagnosis: Left breast draining seroma/hematoma. - Consultation Note Consultation Note: The area over the defect was anesthetized with local anesthetic. Approximately 50 mls of clot and old blood was expressed from the opening. The wound was irrigated with betadine and saline solution and packed with 1/2 inch Nugauze. A dry dressing was applied. The patient tolerated the procedure well. - Plan Plan: Discharge to home. Follow up in the clinic in the morning for a dressing change. OK to return to work on Thursday with dressing instructions and supplies.
== END 2021-04-01 17:13 | disposition home or self-care (01) ==
LOC: ED 15:40
DX: T81.31XA Disruption of external operation (surgical) wound, not elsewhere classified, initial encounter (principal); L76.32 Postprocedural hematoma of skin and subcutaneous tissue following other procedure
CPT/HCPCS: 10160; 99282

== ENCOUNTER 2022-07-23 16:50 | Outpatient (CLI) | payer OTHER ==
[2022-07-23 17:12] LABS: BASOPHILS # (AUTO) 0.1 10^3/uL (0.0-0.1); BASOPHILS % (AUTO) 0.5 %; EOSINOPHILS # (AUTO) 0.1 10^3/uL (0.0-0.7); EOSINOPHILS % (AUTO) 0.9 %; HCT - HEMATOCRIT 38.2 % (37.0-47.0); HGB - HEMOGLOBIN 13.2 g/dL (12.0-16.0); LYMPHOCYTES # (AUTO) 3.5 10^3/uL (1.5-3.5); LYMPHOCYTES % (AUTO) 36.3 %; MEAN CORPUSCULAR HEMOGLOBIN 36.7 pg (27.0-31.0); MEAN CORPUSCULAR HGB CONC 34.6 g/dL (32.0-36.0); MEAN CORPUSCULAR VOLUME 106.1 fL (81.0-99.0); MONOCYTES # (AUTO) 0.8 10^3/uL (0.0-1.0); MONOCYTES % (AUTO) 8.2 %; NEUTROPHILS # (AUTO) 5.1 10^3/uL (1.5-6.6); NEUTROPHILS % (AUTO) 53.8 %; PLT - PLATELET COUNT 203 10^3/uL (130-450); RED CELL DISTRIBUTION WIDTH 12.4 % (12.0-15.0); WHITE BLOOD COUNT 9.5 x10^3/uL (4.8-10.8)
[2022-07-23 17:29] LABS: ALBUMIN 4.1 g/dL (3.2-5.5); ALBUMIN/GLOBULIN RATIO 1.2 (1.0-2.2); BILIRUBIN,TOTAL 0.7 mg/dL (0.2-1.0); CALCIUM 8.6 mg/dL (8.5-10.3); CREATININE 1.2 mg/dL (0.4-1.0); POTASSIUM 3.4 mmol/L (3.5-5.0); TOTAL PROTEIN 7.4 g/dL (6.7-8.2)
== END 2022-07-23 16:51 | disposition home or self-care (01) ==
LOC: LAB 16:50
PROVIDERS: ATTEND Internal Medicine
DX: E83.119 Hemochromatosis, unspecified (principal)
CPT/HCPCS: 36415; 80053; 82728; 83540; 84466; 85025

== ENCOUNTER 2022-11-13 08:25 | Outpatient (CLI) | payer BC, MEDICAID | END 2022-11-13 08:26 | disposition home or self-care (01) | LOC: DI 08:25 | PROVIDERS: ATTEND Internal Medicine | DX: Z53.8 Procedure and treatment not carried out for other reasons (principal) ==

== ENCOUNTER 2022-11-25 09:29 | Outpatient (CLI) | payer BC, MEDICAID ==
--- NOTE | 2022-12-02 12:00 | Ultrasound Report ---
LIMITED ULTRASOUND OF LEFT BREAST AND AXILLA: 11/25/2022 CLINICAL: Patient returns today to evaluate a focal asymmetry in the left breast. Comparison is made to exams dated: 11/13/2022 mammogram - [facility], 07/10/2021 mamm ogram - [facility], 03/11/2021 specimen, 03/11/2021 localization, 12/17/2020 ultrasound, and 09/17/2020 ultrasound biopsy - [facility]. Color flow and real-time ultrasound of the left breast 3 o'clock, and axilla regions were performed. Mendes scale images of the real-time examination were reviewed. There is a 0.6 cm x 0.5 cm x 0.5 cm irregular mass in the left breast at 3 o'clock middle depth 7 cm from the nipple. This irregular mass is hypoechoic. There is an associated biopsy clip slightly mor e anterior to the mass which correlates with previous postbiopsy mammograms. Color flow imaging demo nstrates that there is vascularity present. No significant abnormalities were seen sonographically in the left axilla. IMPRESSION: KNOWN BIOPSY PROVEN MALIGNANCY The 0.6 cm x 0.5 cm x 0.5 cm irregular mass in the left breast is consistent with known biopsy positi ve for malignancy. A surgical consult is recommended for excision. Results were conveyed to the patient during today's evaluation. Findings and recommendations were discussed verbally with Drs. Clay and Colin. Patient's imaging hist ory from biopsy September 2020 through most recent diagnostic mammogram November 2022 was reviewed. This exam was interpreted at Station ID: [id number]. Electronically Signed By: Erik Johns M.D. aty/:12/01/2022 16:21:35 Ultrasound BI-RADS: 6 Known biopsy proven malignancy BI-RADS CATEGORY: (6) - 6 Unspecified - other recall n/a LATERALITY: (B)
== END 2022-11-25 09:30 | disposition home or self-care (01) ==
LOC: DI 09:29
PROVIDERS: ATTEND Internal Medicine
DX: N63.25 Unspecified lump in the left breast, overlapping quadrants (principal)

== ENCOUNTER 2023-05-25 08:19 | Day surgery (SDC) | payer BC ==
[~2023-05-25 08:19] MED LIST changes: -BUFFERED LIDOCAINE 10 ML SYRINGE ONE; +LIDOCAINE-MPF 1% 5 ML VIAL ONE
[2023-05-25] MEDS: LACTATED RINGERS 1,000 ML IV ONE (08:25)
[2023-05-25] MEDS ORDERED: ceFAZolin 2 GM VIAL ONE (08:29)
[2023-05-25] MEDS: LORazepam 0.5 MG TABLET ONE (08:35)
[2023-05-25] MEDS: ACETAMINOPHEN 500 MG TABLET PO ONE (08:35)
[2023-05-25] MEDS ORDERED: BUPIVACAINE 0.5% PF 10 ML VIAL ONE (09:25)
[2023-05-25] MEDS ORDERED: LIDOCAINE 1%-EPI 1:100000 20 ML MDV ONE (09:25)
--- NOTE | 2023-05-25 09:30 | ANESTHESIA ---
Pre-Anesthesia VS, & Labs - Diagnosis left breast invasive ductal carcinoma - Procedure left wire localized breast lumpectomy Vital Signs: Temp Pulse Resp BP Pulse Ox O2 Flow Rate 36 C L 87 18 172/93 H 97 05/25/23 08:30 05/25/23 08:30 05/25/23 08:30 05/25/23 08:30 05/25/23 08:30 Height: 5 ft 5 in Weight (kg): 81.9 kg Body Mass Index: 30.0 BMI Classification: Obese - NPO >8 hours - Is Patient ?: No Home Medications and Allergies Home Medications: Ambulatory Orders methocarbamoL [Methocarbamol] 750 mg PO QID PRN 05/19/23 traMADol [Ultram] 50 mg PO Q4-6H PRN 05/19/23 methocarbamoL [Methocarbamol] 750 mg PO QID PRN 05/19/23 traMADol [Ultram] 50 mg PO Q4-6H PRN 05/19/23 Allergies/Adverse Reactions: Allergies Allergy/AdvReac Type Severity Reaction Status Date / Time Sulfa (Sulfonamide Allergy Unknown Unknown Verified 04/01/21 15:57 Antibiotics) Anes History & Medical History - Anesthetic History Anesthesia Complications: reports: No previous complications - Medical History Cardiovascular: reports: Hypertension Pulmonary: reports: None Gastrointestinal: reports: GERD Urinary: reports: Kidney stones Neuro: reports: Tremors Musculoskeletal: reports: Osteoarthritis, Chronic back pain Endocrine/Autoimmune: reports: None Blood Disorders: reports: None Skin: reports: None Smoking Status: Never smoker Psychosocial: reports: Alcohol (daily vodka) History of Cancer?: Yes - Surgical History Gynecologic: reports: Other (breast lumpectomy) Orthopedic: reports: Other Exam General: Alert, Oriented x3, Cooperative, No acute distress Dental: Poor dentition Mouth Openin Fingerbreadth Neck Mobility: Normal Mallampati classification: III Thyromental Distance: 4-6 cm Mental/Cognitive Status: Alert/Oriented X3, Normal for patient Plan Anesthesia Type: General Consent for Procedure(s) Verified and Reviewed: Yes Code Status: Attempt Resuscitation ASA classification: 3-Severe systemic disease Is this case an emergency?: No
[2023-05-25] MEDS ORDERED: ATROPINE ABBOJECT 1 MG/10 ML SYRINGE IVP PRN (09:31)
[2023-05-25] MEDS ORDERED: HYDROmorphone 0.5 MG/0.5 ML SYRINGE IVP PRN (09:31)
[2023-05-25] MEDS ORDERED: ONDANSETRON 4 MG/2 ML VIAL IVP PRN (09:31)
[2023-05-25] MEDS ORDERED: fentaNYL 100 MCG/2 ML VIAL IVP PRN (09:31)
[2023-05-25] MEDS ORDERED: MORPHINE 2 MG/ML CARPUJECT IVP PRN (09:31)
[2023-05-25] MEDS ORDERED: NALOXONE 0.4 MG/ML VIAL IVP PRN (09:31)
[2023-05-25] MEDS ORDERED: LACTATED RINGERS 1,000 ML IV SCH (10:00)
[2023-05-25] MEDS ORDERED: PROPOFOL 200 MG/20 ML VIAL IVP ONE (10:14)
[2023-05-25] MEDS ORDERED: MIDAZOLAM 2 MG/2 ML VIAL ONE (10:14)
[2023-05-25] MEDS ORDERED: fentaNYL 100 MCG/2 ML VIAL ONE ×2 (10:14→11:24)
[2023-05-25] MEDS ORDERED: DEXAMETHASONE 4 MG/ML VIAL ONE (11:05)
[2023-05-25] MEDS: LIDOCAINE-MPF 1% 5 ML VIAL TD ONE (11:17)
[2023-05-25] MEDS ORDERED: ePHEDrine 50 MG/ML VIAL IVP ONE (11:38)
[2023-05-25] MEDS ORDERED: ONDANSETRON 4 MG/2 ML VIAL ONE (12:12)
[2023-05-25] MEDS: BUPIVACAINE 0.5% PF 10 ML VIAL IM ONE (12:12)
[2023-05-25] MEDS: LIDOCAINE 1%-EPI 1:100000 20 ML MDV SUBQ ONE (12:12)
[2023-05-25] MEDS ORDERED: ACETAMINOPHEN 500 MG TABLET PO PRN (12:23)
[2023-05-25] MEDS: LACTATED RINGERS 800 ML IV ONE (12:26)
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
[2023-05-25 12:33] VITALS: O2SAT 100
[2023-05-25 12:52] VITALS: BP 144/80
--- NOTE | 2023-05-25 12:53 | ANESTHESIA POST OP EVALUATION ---
Anesthesia Post Eval - Post Anesthesia Eval Vitals: Last Vital Signs Temp 36.6 C 05/25/23 12:46 Pulse 86 05/25/23 12:46 Resp 16 05/25/23 12:46 BP 144/80 H 05/25/23 12:46 Pulse Ox 100 05/25/23 12:46 O2 Flow Rate CV Function Including HR & BP: Stable Pain Control: Satisfactory Nausea & Vomiting: Negative Mental Status: Baseline Respiratory Status: Airway Patent Hydration Status: Satisfactory Anesthesia Complications: None
--- NOTE | 2023-05-27 09:31 | Mammography Report ---
SPECIMEN LEFT BREAST: 05/25/2023 CLINICAL: Left breast specimen. Correlation is made to exams dated: 05/25/2023 localization, 05/25/2023 mammogram, 11/13/2022 mammogram - [facility], and 07/10/2021 mammogram - [facility]. Two surgical specimen radiographs demonstrate targeted mass, biopsy clip and distal portion of local ization wire. Findings were reported to Dr. Shaw at time of imaging. IMPRESSION: SPECIMEN Two surgical specimen radiographs demonstrate targeted mass, biopsy clip and distal portion of local ization wire. This exam was interpreted at Station ID: [id number]. Yamilka Garduno M.D., PH.D eb/:05/26/2023 17:43:49 BI-RADS CATEGORY: () - Unspecified - other recall n/a LATERALITY: (B)
--- NOTE | 2023-05-27 09:31 | Ultrasound Report ---
ULTRASOUND GUIDED WIRE LOCALIZATION LEFT BREAST: 05/25/2023 CLINICAL: Left breast wire localization. Correlation is made to exams dated: 11/25/2022 ultrasound, 11/13/2022 mammogram, and 05/25/2023 mammogr - [facility]. A wire localization using ultrasound guidance was performed for the mass located in the left breast a t 3 o'clock, 7 cm from the nipple. The skin was prepped in the usual manner. Local anesthetic was a dministered to the access site. The localization was approached from the lateral aspect. A wire was inserted into the targeted area under ultrasound guidance. IMPRESSION: WIRE LOCALIZATION Wire localization for the mass in the left breast at 3 o'clock, 7 cm from the nipple was performed. This exam was interpreted at Station ID: [id number]. Yamilka Garduno M.D., PH.D eb/:05/26/2023 21:42:50 BI-RADS CATEGORY: () - Unspecified - other recall n/a LATERALITY: (B)
--- NOTE | 2023-05-27 09:31 | Mammography Report ---
UNILATERAL LEFT DIGITAL DIAGNOSTIC MAMMOGRAM: 05/25/2023 CLINICAL: Left breast wire localization. Comparison is made to exam dated: 11/13/2022 mammogram - [facility]. The left breast is almost entirely fatty (category a/<25% glandular tissue). Status post ultrasound guided wire localization targeting mass and biopsy clip in the left breast at 3 o'clock. IMPRESSION: Successful ultrasound guided wire localization targeting mass and clip at 3 o'clock. This exam was interpreted at Station ID: [id number]. NOTE: For mammograms, a report in lay terms will be sent to the patient. Approximately 15% of breast malignancies will not be visualized mammographically. In the management of a palpable breast mass, a negative mammogram must not discourage biopsy of a clinically suspicious lesion. Electronically Signed By: Yamilka Garduno M.D., PH.D eb/:05/26/2023 17:40:45 ACR BI-RADS Category n/a PARENCHYMAL PATTERN: (F) - The breast(s) demonstrate(s) diffuse fatty replacement. BI-RADS CATEGORY: () - Unspecified - other recall n/a LATERALITY: (B)
== END 2023-05-25 08:20 | disposition home or self-care (01) ==
LOC: DI 08:19
PROVIDERS: ATTEND Surgery
PROC: 0HBU0ZX Excision of Left Breast, Open Approach, Diagnostic (ICD-10-PCS; principal; 2023-05-25 09:45)
DX: C50.812 Malignant neoplasm of overlapping sites of left female breast (principal); Z86.711 Personal history of pulmonary embolism; Z79.01 Long term (current) use of anticoagulants; Z63.8 Other specified problems related to primary support group; E66.9 Obesity, unspecified; Z68.30 Body mass index [BMI] 30.0-30.9, adult; I10 Essential (primary) hypertension
CPT/HCPCS: 19285

== ENCOUNTER 2023-06-03 12:57 | Emergency (ER) | payer BC ==
[2023-06-03 13:26] LABS: BASOPHILS # (AUTO) 0.1 10^3/uL (0.0-0.1); BASOPHILS % (AUTO) 0.6 %; EOSINOPHILS % (AUTO) 0.1 %; HCT - HEMATOCRIT 39.6 % (37.0-47.0); HGB - HEMOGLOBIN 13.5 g/dL (12.0-16.0); LYMPHOCYTES # (AUTO) 0.5 10^3/uL (1.5-3.5); LYMPHOCYTES % (AUTO) 5.6 %; MEAN CORPUSCULAR HEMOGLOBIN 36.1 pg (27.0-31.0); MEAN CORPUSCULAR HGB CONC 34.1 g/dL (32.0-36.0); MEAN CORPUSCULAR VOLUME 105.9 fL (81.0-99.0); MEAN PLATELET VOLUME 10.2 fL (7.9-10.8); MONOCYTES # (AUTO) 0.9 10^3/uL (0.0-1.0); NEUTROPHILS # (AUTO) 6.7 10^3/uL (1.5-6.6); NEUTROPHILS % (AUTO) 82.2 %; PLT - PLATELET COUNT 205 10^3/uL (130-450); RED BLOOD COUNT 3.74 10^6/uL (4.20-5.40); RED CELL DISTRIBUTION WIDTH 12.7 % (12.0-15.0); WHITE BLOOD COUNT 8.2 x10^3/uL (4.8-10.8)
[2023-06-03 13:46] LABS: BILIRUBIN,URINE MODERATE (NEGATIVE); GLUCOSE, URINE (UA) NEGATIVE (NEGATIVE); KETONES,URINE (UA) TRACE mg/dL (NEGATIVE); LEUKOCYTE ESTERASE, URINE MODERATE (NEGATIVE); NITRITE,URINE NEGATIVE (NEGATIVE); OCCULT BLOOD,URINE SMALL (NEGATIVE); PH,URINE 5.5 PH (5.0-7.5); PROTEIN,URINE 100 mg/dL (NEGATIVE); UROBILINOGEN,URINE 0.2 (NORMAL) E.U./dL (NORMAL)
[2023-06-03 13:50] LABS: CLARITY,URINE CLOUDY (CLEAR)
[2023-06-03 13:52] LABS: BACTERIA,URINE Many /HPF (None Seen); RBC,URINE 0-5 /HPF (0-5); SQUAMOUS EPITHELIAL CELL,UR FEW Squamous (<= Few); WBC,URINE >25 /HPF (0-5)
[2023-06-03 14:04] LABS: CALCIUM 9.1 mg/dL (8.5-10.3)
[2023-06-03 14:05] LABS: BILIRUBIN,TOTAL 0.5 mg/dL (0.2-1.0); CREATININE 2.5 mg/dL (0.6-1.3); POTASSIUM 2.9 mmol/L (3.5-4.5)
[2023-06-03 14:06] LABS: ALBUMIN 3.9 g/dL (3.2-5.5); ALBUMIN/GLOBULIN RATIO 0.9 (1.0-2.2); TOTAL PROTEIN 8.1 g/dL (6.4-8.9)
--- NOTE | 2023-06-03 14:25 | ED Physician Documentation ---
PD HPI ABD PAIN - Stated complaint Stated Complaint: BACK PX/FEVERS - Chief complaint Chief Complaint: Abd Pain - Additional information Additional information: 62-year-old female presents emergency department for left flank pain. Patient says that she has been feeling unwell now for about a week or so she has had a history of kidney stone. She has been feeling like she is having a hard time fully emptying her bladder left flank pain and has been having multiple fevers and chills at home. She also endorses some nausea no emesis. 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 : Kidney stones HEENT: Chronic vision loss Psych: Depression, Anxiety Musculoskeletal: Osteoarthritis, Chronic back pain Derm: None - Past Surgical History Past Surgical History: Yes Ortho: Other /HELPER DRIVER: Other - Present Medications Home Medications: Ambulatory Orders Medication Instructions Recorded Confirmed methocarbamoL [Methocarbamol] 750 mg PO QID PRN 05/19/23 06/03/23 traMADol [Ultram] 50 mg PO Q4-6H PRN 05/19/23 06/03/23 Cefuroxime Axetil [Cefuroxime] 500 mg PO BID 7 Days #14 tablet 06/03/23 ONDANSETRON ODT Prepack 2 [ZOFRAN 4 mg TL Q6H PRN #30 tablet 06/03/23 ODT Prepack 2] Oxycodone HCl/Acetaminophen 1 each PO Q6HR PRN #15 tablet 06/03/23 [Percocet 5-325 mg Tablet] Tamsulosin HCl [Flomax] 0.4 mg PO DAILY #30 cap 06/03/23 - Allergies Allergies/Adverse Reactions: Allergies Allergy/AdvReac Type Severity Reaction Status Date / Time Sulfa (Sulfonamide Allergy Unknown Unknown Verified 06/03/23 13:06 Antibiotics) - Social History Does the pt smoke?: No Smoking Status: Never smoker Does the pt drink ETOH?: Yes Does the pt have substance abuse?: No - Immunizations Immunizations are current?: Yes - POLST Patient has POLST: No POLST Status: Full Code PD ED PE NORMAL - Vitals Vital signs reviewed: Yes - General General: Alert and oriented X 3, No acute distress, Well developed/nourished - Cardiac Cardiac: No murmur, Strong equal pulses, Other (tachycardic) - Respiratory Respiratory: No respiratory distress, Clear bilaterally - Abdomen Abdomen: Normal bowel sounds, Non distended, No organomegaly, Other (Suprapubic tenderness) - Back Back: Other (Left CVA tenderness) - Derm Derm: Normal color, Warm and dry, No rash - Psych Psych: Normal mood, Normal affect Results - Vitals Vitals: Vital Signs - 24 hr 06/03/23 06/03/23 06/03/23 13:04 14:05 16:00 Temperature 36.5 C Heart Rate 108 H 102 H 78 Respiratory 16 20 16 Rate Blood Pressure 121/66 99/85 H 138/79 H O2 Saturation 99 100 98 06/03/23 17:10 Temperature Heart Rate 78 Respiratory 16 Rate Blood Pressure 137/87 H O2 Saturation 98 Oxygen O2 Source Room air - Labs Labs: Laboratory Tests 06/03/23 06/03/23 06/03/23 13:16 13:21 13:21 WBC 8.2 RBC 3.74 L Hgb 13.5 Hct 39.6 MCV 105.9 H MCH 36.1 H MCHC 34.1 RDW 12.7 Plt Count 205 MPV 10.2 Neut # (Auto) 6.7 H Lymph # (Auto) 0.5 L [place] # (Auto) 0.9 Eos # (Auto) 0.0 Baso # (Auto) 0.1 Absolute Nucleated RBC 0.00 Nucleated RBC % 0.0 Sodium 132 L Potassium 2.9 L Chloride 91 L Carbon Dioxide 27 Anion Gap 14.0 H BUN 59 H Creatinine 2.5 H Estimated GFR (MDRD) 20 L Glucose 123 H Calcium 9.1 Magnesium Total Bilirubin 0.5 AST 41 ALT 21 Alkaline Phosphatase 80 Total Protein 8.1 Albumin 3.9 Globulin 4.2 Albumin/Globulin Ratio 0.9 L Lipase 28 Urine Color YELLOW Urine Clarity CLOUDY Urine pH 5.5 Ur Specific [place] 1.025 Urine Protein 100 H Urine Glucose (UA) NEGATIVE Urine Ketones TRACE Urine Occult Blood SMALL H Urine Nitrite NEGATIVE Urine Bilirubin MODERATE H Urine Urobilinogen 0.2 (NORMAL) Ur Leukocyte Esterase MODERATE H Urine RBC 0-5 Urine WBC >25 H Ur Squamous Epith Cells FEW Squamous Urine Bacteria Many H Ur Microscopic Review INDICATED Urine Culture Comments INDICATED 06/03/23 13:42 WBC RBC Hgb Hct MCV MCH MCHC RDW Plt Count MPV Neut # (Auto) Lymph # (Auto) [place] # (Auto) Eos # (Auto) Baso # (Auto) Absolute Nucleated RBC Nucleated RBC % Sodium Potassium Chloride Carbon Dioxide Anion Gap BUN Creatinine Estimated GFR (MDRD) Glucose Calcium Magnesium 1.5 L Total Bilirubin AST ALT Alkaline Phosphatase Total Protein Albumin Globulin Albumin/Globulin Ratio Lipase Urine Color Urine Clarity Urine pH Ur Specific [place] Urine Protein Urine Glucose (UA) Urine Ketones Urine Occult Blood Urine Nitrite Urine Bilirubin Urine Urobilinogen Ur Leukocyte Esterase Urine RBC Urine WBC Ur Squamous Epith Cells Urine Bacteria Ur Microscopic Review Urine Culture Comments - Rads (name of study) CT KUB Relevant Findings:: Final report received, EMP independent interpretation of test, Other (Obstructing 6 mm stone in the proximal left ureter, moderate hydronephrosis renal edema and perinephric fat stranding) PD Medical Decision Making - ED course ED course: Labs complete in the emergency department RBCs 3.74 which appears to be at patient's baseline in comparison to previous lab results, MCV 105.9 again this appears to be consistent with patient's previous labs. Neutrophils elevated at 6.7 lymphocytes suppressed at 0.5. Chemistry also complete patient is hyponatremic, sodium 132 she shows no signs or symptoms of hyponatremia no confusion. Potassium also was low at 2.9 with a low magnesium at 1.5. Potassium and magnesium was replaced p.o. in the emergency department. Patient appears to also have a significant GEORGIE, BUN 59, creatinine 2.5, GFR 20. This is new for the patient, she does appear to have some sort of chronic kidne y disease GFR baseline is in the 60s but Last creatinine was 0.9. CT KUB was completed and revealed a 6 mm stone in the left kidney with fat stranding and hydronephrosis mild edema. I spoke with Dr. Curry with urology About CT results and labswho says that patient is safe for discharge at this time as long as she receives empiric IV antibiotics here in the emergency department she received 1 g of IV Rocephin here in the ER as well as started on Flomax. Prescription of Keflex was sent to patient's preferred pharmacy as well as Flomax. Urine sent for cultures. Patient given very strict return precautions she is able to demonstrate teach back without difficulty Addendum: Dr. Abarca called me back and let me know that he would like to follow-up patient for [place] tomorrow morning I attempted to call patient about 4-5 times now I have left a voicemail that she should be n.p.o. after midnight and that urology would like to follow-up with her first thing tomorrow morning. Departure - Departure Disposition: 01 Home, Self Care Clinical Impression: Renal calculi, GEORGIE (acute kidney injury), Hypokalemia, Hypomagnesemia UTI (urinary tract infection) Qualifiers: Urinary tract infection type: acute pyelonephritis Qualified Code(s): N10 - Acute pyelonephritis Instructions: Kidney Stones, Injury Acute Kidney Dc, Hypokalemia Dc, Hypomagnesemia Dc Prescriptions: Oxycodone HCl/Acetaminophen [Percocet 5-325 mg Tablet] 1 each PO Q6HR PRN #15 tablet PRN Reason: Pain >8 Cefuroxime Axetil [Cefuroxime] 500 mg PO BID 7 Days #14 tablet Tamsulosin HCl [Flomax] 0.4 mg PO DAILY #30 cap ONDANSETRON ODT Prepack 2 [ZOFRAN ODT Prepack 2] 4 mg TL Q6H PRN #30 tablet PRN Reason: Nausea / Vomiting Comments: Thank you for trusting us with your care. We have found that you have a thank you for trusting us with your care. We have found that you have a kidney stone in your left kidney. We have started you on a medication called Flomax to help you pass the urine make sure that you are starting your urine if you are able to collect it bring it into urology appointment in 2 weeks. We have given you first dose of IV antibiotics here in the emergency department tomorrow morning you will start taking cefpodoxime twice a day for the next 7 days. Ensure that you are drinking plenty of fluids to help with your acute kidney injury and eat a diet that has high in potassium magnesium things like Gatorade, coconut water, bananas, sweet potatoes to help with electrolyte replacement. Please have a very low threshold to come back into the emergency department if you are having any worsening signs or symptoms, decreased urinary output, nausea vomiting, ongoing fevers and chills, or any other concerning symptoms. He will need to follow-up with urology in 2 weeks and have repeat labs collected. Please also let your primary care provider know that you are in today and follow-up with them as well. Below you will see the CT results COMPARISON: None. FINDINGS: Image quality: Diagnostic. Kidneys and ureters: Obstructing 6 mm stone in the proximal left ureter (395 Hounsfield unit). This results in moderate hydronephrosis, renal edema and perinephric fat stranding. Bladder: Bladder wall thickness is normal, accounting for underdistention. No calcified bladder stones. OTHER: Lower chest: Left breast lumpectomy, with fluid collection in left breast likely representing a postoperative seroma. Liver: No contour-deforming mass. Gallbladder and biliary tree: No radiopaque stones or wall thickening. No biliary dilation. Spleen: No splenomegaly. Pancreas: No pancreatic ductal dilation. Adrenals: No adrenal nodule. Stomach, bowel and peritoneum: No bowel distension. No pathologic free fluid. Lymph nodes: No central or retroperitoneal adenopathy. Vessels: No infrarenal aortic aneurysm. Reproductive organs: Unremarkable. Pelvic lymph nodes: No adenopathy by size criteria. Bones: No aggressive osseous abnormality. Degenerative disc disease. Anterior wedging of the T12 and T11 vertebral bodies. Other: No significant ventral or inguinal hernia. IMPRESSION: Obstructing 6 mm stone in the proximal left ureter, resulting in moderate hydronephrosis, renal edema and perinephric fat stranding. Forms: PCP List Discharge Date/Time: 06/03/23 17:09
[2023-06-03] MEDS: SODIUM CHLORIDE 0.9% 1,000 ML IV ONE (14:31)
[2023-06-03] MEDS: POTASSIUM CHLORIDE 20 MEQ TABLET PO STA (14:31)
[2023-06-03] MEDS: ONDANSETRON ODT 4 MG TABLET TL STA (14:43)
[2023-06-03] MEDS: ONDANSETRON 4 MG/2 ML VIAL IVP STA (14:57)
[2023-06-03] MEDS: MAGNESIUM OXIDE 400 MG TABLET PO STA (15:25)
--- NOTE | 2023-06-03 16:21 | CT Report ---
PROCEDURE: KUB INDICATIONS: left flank pain TECHNIQUE: A CT scan of the abdomen and pelvis was performed without the use of intravenous contrast. Images we re recorded and evaluated at appropriate window settings. Reformats: coronal and sagittal. For radiat ion dose reduction, the following was used: automated exposure control, adjustment of mA and/or kV ac cording to patient size. COMPARISON: None. FINDINGS: Image quality: Diagnostic. Kidneys and ureters: Obstructing 6 mm stone in the proximal left ureter (395 Hounsfield unit). This r esults in moderate hydronephrosis, renal edema and perinephric fat stranding. Bladder: Bladder wall thickness is normal, accounting for underdistention. No calcified bladder stone s. OTHER: Lower chest: Left breast lumpectomy, with fluid collection in left breast likely representing a posto perative seroma. Liver: No contour-deforming mass. Gallbladder and biliary tree: No radiopaque stones or wall thickening. No biliary dilation. Spleen: No splenomegaly. Pancreas: No pancreatic ductal dilation. Adrenals: No adrenal nodule. Stomach, bowel and peritoneum: No bowel distension. No pathologic free fluid. Lymph nodes: No central or retroperitoneal adenopathy. Vessels: No infrarenal aortic aneurysm. Reproductive organs: Unremarkable. Pelvic lymph nodes: No adenopathy by size criteria. Bones: No aggressive osseous abnormality. Degenerative disc disease. Anterior wedging of the T12 and T11 vertebral bodies. Other: No significant ventral or inguinal hernia. IMPRESSION: Obstructing 6 mm stone in the proximal left ureter, resulting in moderate hydronephrosis, renal edema and perinephric fat stranding. Reviewed by: Ish Hull MD on 06/03/2023 4:20 PM [facility] Approved by: Ish Hull MD on 06/03/2023 4:20 PM [facility] Station ID: [id number]
[2023-06-03 16:28] VITALS: O2SAT 98
[2023-06-03] MEDS: TAMSULOSIN 0.4 MG CAPSULE PO STA (16:54)
[2023-06-03] MEDS: cefTRIAXone 1 GM VIAL IVP STA (16:54)
[2023-06-03 17:15] VITALS: BP 137/87
== END 2023-06-03 17:09 | disposition home or self-care (01) ==
LOC: ED 12:57
DX: N13.2 Hydronephrosis with renal and ureteral calculous obstruction (principal); N17.9 Acute kidney failure, unspecified; N10 Acute pyelonephritis; E87.6 Hypokalemia; E83.42 Hypomagnesemia; Z87.442 Personal history of urinary calculi
CPT/HCPCS: 36415; 74176; 80053; 81001; 83690; 83735; 85025; 87086; 96361; 96374; 96375; 99284; A9270; 81003; 87077; 87181

== ENCOUNTER 2023-06-04 08:00 | Outpatient (CLI) | payer BC | END 2023-06-04 23:59 | disposition home or self-care (01) | LOC: LAB 08:00 | PROVIDERS: ATTEND Urology | DX: N20.0 Calculus of kidney (principal) | CPT/HCPCS: 87086 ==

== ENCOUNTER 2023-06-09 07:19 | Day surgery (SDC) | payer BC ==
[~2023-06-09 07:19] MED LIST changes: +LIDOCAINE 2% URO-JET 5 ML SYRINGE UR ONE; -LIDOCAINE-MPF 1% 5 ML VIAL ONE; +ceFAZolin 2 GM VIAL ONE; +iohexoL-240 10 ML VIAL IVP ONE
[2023-06-09] MEDS: LACTATED RINGERS 1,000 ML IV ONE (07:30)
[2023-06-09] MEDS ORDERED: MIDAZOLAM 2 MG/2 ML VIAL ONE (08:15)
[2023-06-09] MEDS ORDERED: LIDOCAINE-PF 2% 10 ML AMP SUBQ ONE (08:16)
[2023-06-09] MEDS ORDERED: PROPOFOL 200 MG/20 ML VIAL IVP ONE (08:16)
[2023-06-09] MEDS ORDERED: fentaNYL 100 MCG/2 ML VIAL ONE (08:16)
[2023-06-09] MEDS ORDERED: NALOXONE 0.4 MG/ML VIAL IVP PRN (08:24)
[2023-06-09] MEDS ORDERED: fentaNYL 100 MCG/2 ML VIAL IVP PRN (08:24)
[2023-06-09] MEDS ORDERED: MORPHINE 2 MG/ML CARPUJECT IVP PRN (08:24)
[2023-06-09] MEDS ORDERED: ePHEDrine 50 MG/ML VIAL IVP PRN (08:24)
[2023-06-09] MEDS ORDERED: METOCLOPRAMIDE 10 MG/2 ML VIAL IVP PRN (08:24)
[2023-06-09] MEDS ORDERED: ATROPINE ABBOJECT 1 MG/10 ML SYRINGE IVP PRN (08:24)
[2023-06-09] MEDS ORDERED: HYDROmorphone 0.5 MG/0.5 ML SYRINGE IVP PRN (08:24)
[2023-06-09] MEDS ORDERED: ONDANSETRON 4 MG/2 ML VIAL IVP PRN ×2 (08:24→09:33)
--- NOTE | 2023-06-09 08:24 | ANESTHESIA ---
Pre-Anesthesia VS, & Labs - Diagnosis L renal stone, hydronephrosis - Procedure L cystoscopy, ureteroscopy with laser lithotripsy Vital Signs: Temp Pulse Resp BP Pulse Ox O2 Flow Rate 36.9 C 89 14 122/79 100 06/09/23 07:37 06/09/23 07:37 06/09/23 07:37 06/09/23 07:37 06/09/23 07:37 Height: 5 ft 5 in Weight (kg): 81.4 kg Body Mass Index: 29.8 BMI Classification: Overweight - NPO >8 hours - Is Patient ?: No - Lab Results Lab results reviewed: Yes Home Medications and Allergies Allergies/Adverse Reactions: Allergies Allergy/AdvReac Type Severity Reaction Status Date / Time Sulfa (Sulfonamide Allergy Unknown Unknown Verified 06/03/23 13:06 Antibiotics) Anes History & Medical History - Anesthetic History Anesthesia Complications: reports: No previous complications Family history of Anesthesia Complications: Denies Family history of Malignant Hyperthermia: Denies - Medical History Cardiovascular: reports: Hypertension Pulmonary: reports: None Gastrointestinal: reports: GERD Urinary: reports: Kidney stones Neuro: reports: Tremors Musculoskeletal: reports: Osteoarthritis, Chronic back pain Endocrine/Autoimmune: reports: None Blood Disorders: reports: None Skin: reports: None Smoking Status: Never smoker - Surgical History Gynecologic: reports: Other Orthopedic: reports: Other Exam General: Alert, Oriented x3, Cooperative Dental: WNL Mouth Openin Fingerbreadth Neck Mobility: Normal Mallampati classification: III Thyromental Distance: 4-6 cm Respiratory: Lungs clear, Normal breath sounds Cardiovascular: Regular rate Neurological: Normal speech Mental/Cognitive Status: Alert/Oriented X3, Normal for patient Cognitive Status: Within normal limits Plan Anesthesia Type: General Consent for Procedure(s) Verified and Reviewed: Yes Code Status: Attempt Resuscitation ASA classification: 2-Mild systemic disease Is this case an emergency?: No
[2023-06-09] MEDS ORDERED: ONDANSETRON 4 MG/2 ML VIAL ONE (08:46)
[2023-06-09] MEDS ORDERED: DEXAMETHASONE 4 MG/ML VIAL ONE (08:46)
[2023-06-09] MEDS: LIDOCAINE 2% URO-JET 5 ML SYRINGE UR ONE (08:53)
[2023-06-09] MEDS ORDERED: LACTATED RINGERS 1,000 ML IV SCH (09:00)
[2023-06-09] MEDS ORDERED: KETOROLAC 30 MG/ML VIAL ONE (09:10)
[2023-06-09] MEDS: LACTATED RINGERS 300 ML IV ONE (09:19)
[2023-06-09] MEDS ORDERED: HYDROcod/ACETAM 5/325 MG TABLET PO PRN (09:33)
--- NOTE | 2023-06-09 09:42 | ANESTHESIA POST OP EVALUATION ---
Anesthesia Post Eval - Post Anesthesia Eval Vitals: Last Vital Signs Temp 36.6 C 06/09/23 09:40 Pulse 79 06/09/23 09:40 Resp 17 06/09/23 09:40 BP 116/96 H 06/09/23 09:40 Pulse Ox 100 06/09/23 09:40 O2 Flow Rate CV Function Including HR & BP: Stable Pain Control: Satisfactory Nausea & Vomiting: Negative Mental Status: Baseline Respiratory Status: Airway Patent Hydration Status: Satisfactory Anesthesia Complications: None
--- NOTE | 2023-06-09 09:51 | Discharge Plan ---
Discharge Plan Problem Reviewed?: Yes Disposition: Home, Self Care Condition: Good Prescriptions: Docusate Sodium 100Mg Capsule [Colace 100Mg Capsule] 100 mg PO DAILY #7 cap HYDROcod/ACETAM 5/325 [K[place] 5/325] 1 tab PO Q4H PRN #10 tablet PRN Reason: Pain Diet: Regular Activity Restrictions: No Restrictions Shower Restrictions: No Driving Restrictions: No (do not drive while taking narcotic medications) Instruction Topics: Stents Ureteral No Smoking: If you smoke, Please STOP! Call for help. Follow-up with: Ariel Curry MD [Provider Admit Priv/Credential] -
--- NOTE | 2023-06-09 10:02 | OPERATIVE REPORT ---
Operative Report - General Planned Procedure: Cystoscopy, left ureteroscopy, laser lithotripsy and stent Pre-Op Diagnosis: Left ureteral stone Procedure Performed: Cystoscopy, left ureteroscopy, laser lithotripsy, basket stone extraction, stone manipulation and stent Post Op Diagnosis: Left ureteral and renal stone - Procedure Note Primary Surgeon: Patricio Anesthesia Provider: BRIANNA Staton Pathology: Left ureteral stone Findings: Proximal 7 mm left ureteral stone, manipulated back into the kidney Dusted and fragmented to small pieces. Larger pieces removed. Complications: none - Other Other Information/Narrative: After informed sent was obtained the patient was brought to the OR and laid in the supine position. The patient was anesthetized per anesthesia protocols and prepped and draped in usual sterile fashion in the dorsolithotomy position. A formal timeout was performed confirming the patient, procedure and laterality. 22 Albanian cystoscope was advanced easily into urinary bladder. The bladder inspected and full there were no masses lesions or other concerns. We attempted to place sensor after her left ureteral orifice however was slightly difficult to gain access and so we used our flexible ureteroscope instead this was able to cannulate the left UO with a sensor wire and we advanced up this until we met the stone in the proximal ureter it was about 7 mm long and 2 or 3 mm wide long like a long hotdog. It appeared soft and yellow and crystalline. We then used a 200 m laser fiber to dust the stone but this manipulation caused the stone to fly backwards into the kidney. We chased up into the kidney and used the laser to break it up into small pieces. Using a basket we removed several of these pieces until only dust and tiny fragments were remaining. We then placed a 6 Albanian variable ureteral stent up into the kidney with good curling noted in the kidney and good curling on the bladder. A Uro-Jet was placed. This included the procedure the patient tolerated the procedure well. She was brought to the PACU without further incident and we will plan to follow-up in 2 to 3 weeks time for stent removal in the office. All counts were correct
[2023-06-09 10:47] VITALS: BP 141/79
[2023-06-09 10:57] VITALS: O2SAT 98
--- NOTE | 2023-06-09 15:42 | XRAY Report ---
PROCEDURE: OR C-Arm Procedure INDICATIONS: stent placement FLUORO TIME: 0.01 MIN TECHNIQUE: Single intraoperative image is provided for evaluation. COMPARISON: None. FINDINGS: Single image overlying the labeled inferior left hemiabdomen. Visual distortions of the spine and pel vis are intact. IMPRESSION: Intraoperative image as above. Reviewed by: Shirley Zee MD on 06/09/2023 3:41 PM PST Approved by: Shirley Zee MD on 06/09/2023 3:41 PM [facility] Station ID: [id number]
== END 2023-06-09 07:20 | disposition home or self-care (01) ==
LOC: SDS 07:19
PROVIDERS: ATTEND Urology
DX: N20.1 Calculus of ureter (principal); Z09 Encounter for follow-up examination after completed treatment for conditions other than malignant neoplasm; Z86.711 Personal history of pulmonary embolism; Z79.01 Long term (current) use of anticoagulants; I10 Essential (primary) hypertension; K21.9 Gastro-esophageal reflux disease without esophagitis
CPT/HCPCS: 52356; 82365; C1758; J7120; Q9966